=== PATIENT | male | born 1960 | race Caucasian/White ===

== ENCOUNTER 2017-04-02 13:34 | Inpatient (IN) | payer MEDICARE ==
[~2017-04-02] VITALS: Ht 167.6 cm; Wt 90.0 kg
[~2017-04-02 13:34] MED LIST: ASCO500C PO; BETH50TA2 PO; COLA100C3 PO; CYMB60CA PO; DIAZ5 PO; GABA300C5 PO; LEVO.05 PO; NADO20TA PO; OXYC30TA62 PO; PERC10TA27 PO; PROC2.5C RECTAL; PROT40TA PO; TAMS5CAP PO; TIZA6CAP3 PO; ZYRT10CA PO
[2017-04-02 13:39] VITALS: BP 88/57; PULSE 80; RESP 20; TEMP 98.7; O2SAT 95
--- NOTE | 2017-04-02 13:41 | PD ---
Physical Exam Time Seen by Provider: 13:39 Narrative 56 y/o male sent here by Dr. Salazar for evaluation of extensive cellulitis not responding to outpatient therapy. He has been taking a leftover prescription of azithromyin in an effort to self-treat. Denies fevers but he ahs had "sweats." Vital signs reviewed. Seen at triage desk. Awaiting bed placement. Data Data Last Documented VS Vital Signs Date Time Temp Pulse Resp B/P Pulse Ox O2 Delivery O2 Flow Rate FiO2 04/02/17 13:39 98.7 80 20 88/57 95 MDM Medical Record Reviewed: Yes Supervised Visit with MARIA GUADALUPE: No James Delcid Apr 02, 2017 13:41
[2017-04-02 13:42] VITALS: BP 97/57; PULSE 80
[2017-04-02 15:57] VITALS: BP 95/62; PULSE 82; RESP 16; TEMP 97.4; O2SAT 96
[2017-04-02 16:00] VITALS: BP 100/66; PULSE 82; RESP 16
[2017-04-02] MEDS ORDERED: SODIUM CHLOR 0.9% 1000 ML INJ 1,000 ML IV ONE (17:00)
[2017-04-02] MEDS ORDERED: VANCOMYCIN INJ 1,000 MG in SODIUM CHLOR 0.9% 250 ML INJ 250 ML IV ONE (17:00)
[2017-04-02 17:31] LABS: AUTOMATED NEUTROPHIL # 3.8 TH/MM3 (1.8-7.7); BASOPHIL % 0.5 % (0.0-2.0); EOSINOPHIL # 0.1 TH/MM3 (0-0.4); EOSINOPHIL % 1.1 % (0.0-4.0); HEMATOCRIT 39.8 % (39.0-51.0); HEMO FLAGS DIFF FINAL; LYMPH % 38.7 % (9.0-44.0); LYMPHOCYTE # 2.9 TH/MM3 (1.0-4.8); MEAN CELL VOLUME 86.4 FL (80.0-100.0); MEAN CORPUSCULAR HEMOGLOBIN 29.8 PG (27.0-34.0); MEAN CORPUSCULAR HGB CONC 34.5 % (32.0-36.0); MONO % 9.9 % (0.0-8.0); NEUT % 49.8 % (16.0-70.0); PLATELET COUNT 181 TH/MM3 (150-450); RED BLOOD COUNT 4.61 MIL/MM3 (4.50-5.90); RED CELL DISTRIBUTION WIDTH 12.9 % (11.6-17.2); WHITE BLOOD COUNT 7.6 TH/MM3 (4.0-11.0)
[2017-04-02 17:46] LABS: ALT (GPT) 48 U/L (12-78)
[2017-04-02 17:48] LABS: ALKALINE PHOSPHATASE 89 U/L (45-117); TOTAL BILIRUBIN ADULT 0.7 MG/DL (0.2-1.0)
[2017-04-02 18:14] LABS: ANION GAP 6 MEQ/L (5-15); AST (GOT) 34 U/L (15-37); BICARBONATE 30.9 MEQ/L (21.0-32.0); BLOOD UREA NITROGEN 8 MG/DL (7-18); CHLORIDE 100 MEQ/L (98-107); GLOMERULAR FILTRATION RATE 79 ML/MIN (>89); POTASSIUM 3.9 MEQ/L (3.5-5.1); SODIUM (NA) 137 MEQ/L (136-145)
--- NOTE | 2017-04-02 18:44 | PD ---
HPI Chief Complaint: Skin Problem Time Seen by Provider: 16:18 Travel History International Travel<30 days: No Contact w/Intl Traveler<30days: No Traveled to known affect area: No History of Present Illness HPI PATIENT WAS SENT OVER BY PCP FOR IV ABX FOR CELLULITIS WITH OUTPT MED FAILURE....PATIENT IS DIFFICULT TO CARE FOR DUE TO MULTIPLE ALLERGIES (CIPRO, EES, PCN, SULFA) PFSH Past Medical History Blood Disorders: No Cancer: No Cardiovascular Problems: No Chemotherapy: No Diabetes: No Endocrine: No GERD: Yes Genitourinary: No Hepatitis: No Hiatal Hernia: No Immune Disorder: No Musculoskeletal: Yes (PT IS A QUADRIPLEGIC FOR TWO YEARS.) Neurologic: Yes Psychiatric: No Reproductive: No Respiratory: No Radiation Therapy: No Thyroid Disease: No Past Surgical History Abdominal Surgery: Yes (HAITAL HERNIA, CHOLECYSTECTOMY, ) AICD: No Arteriovenous Shunt: No Body Medical Devices: CERVICAL PLATE AND SCREWS POST ACCEDENT SX. Cardiac Surgery: No Cholecystectomy: Yes (10/08/06) Ear Surgery: No Endocrine Surgery: No Eye Surgery: No Genitourinary Surgery: Yes (ADRENAAL GLAND REMOVED) Gynecologic Surgery: No Insulin Pump: No Joint Replacement: No Oral Surgery: No Pacemaker: No Thoracic Surgery: No Other Surgery: Yes (&A 1972) Social History Alcohol Use: No Tobacco Use: Yes (1PPD) Substance Use: No Allergies-Medications (Allergen,Severity, Reaction): Coded Allergies: Baclofen (Verified Allergy, Severe, respiratory difficulty, 04/02/17) Cipro (Verified Allergy, Severe, respiratory difficulty, 04/02/17) Erythromycin (Verified Allergy, Severe, respiratory difficulty, 04/02/17) Penicillin (Verified Allergy, Severe, THROAT CLOSE, 04/02/17) Sulfa (Verified Allergy, Severe, respiratory difficulty, 04/02/17) Reported Meds & Prescriptions Reported Meds & Active Scripts Active Flomax (Tamsulosin HCl) 0.4 Mg Cap 0.4 Mg PO BID Nadolol 20 Mg Tab 20 Mg PO DAILY Proctosol Hc 2.5% (Hydrocortisone Rectal 2.5%) 2.5% Cream 1 Applic RECTAL BID PRN Bethanechol 50 Mg Tab 50 Mg PO QID Reported Vitamin C (Ascorbic Acid) 500 Mg Cap 500 Mg PO DAILY Tizanidine (Tizanidine HCl) 6 Mg Cap 6 Mg PO DIRECTED (2) tabs hs and (1) tab bid Synthroid (Levothyroxine Sodium) 50 Mcg Tab 50 Mcg PO DAILY Protonix (Pantoprazole Sodium) 40 Mg Tab 40 Mg PO DAILY Percocet (Oxycodone-Acetaminophen) 10-325 mg Tab 1 Tab PO DIRECTED PRN Oxycontin (Oxycodone HCl) 30 Mg Tab 30 Mg PO BID Gabapentin 300 Mg Cap 300 Mg PO HS Colace (Docusate Sodium) 100 Mg Cap 100 Mg PO DAILY Valium (Diazepam) 5 Mg Tab 5 Mg PO QID PRN Cymbalta DR (Duloxetine HCl) 60 Mg Capdr 60 Mg PO DAILY Zyrtec Allergy (Cetirizine HCl) 10 Mg Cap 10 Mg PO DIRECTED Review of Systems Except as stated in HPI: all other systems reviewed are Neg Physical Exam Narrative GENERAL: SKIN: Warm and dry. ERYTHEMA/WARM OVER LEFT BUTTOCK AND LATERAL THIGH HEAD: Atraumatic. Normocephalic. EYES: Pupils equal and round. No scleral icterus. No injection or drainage. ENT: No nasal bleeding or discharge. Mucous membranes pink and moist. NECK: Trachea midline. No JVD. CARDIOVASCULAR: Regular rate and rhythm. RESPIRATORY: No accessory muscle use. Clear to auscultation. Breath sounds equal bilaterally. GASTROINTESTINAL: Abdomen soft, non-tender, nondistended. Hepatic and splenic margins not palpable. MUSCULOSKELETAL: Extremities without clubbing, cyanosis, or edema. No obvious deformities. HOWEVER PATIENT IS QUADRUPLEGIC NEUROLOGICAL: Awake and alert. Normal speech. PSYCHIATRIC: Appropriate mood and affect; insight and judgment normal. Data Data Last Documented VS Vital Signs Date Time Temp Pulse Resp B/P Pulse Ox O2 Delivery O2 Flow Rate FiO2 04/02/17 16:00 82 16 100/66 04/02/17 15:57 97.4 96 Orders Complete Blood Count With Diff (04/02/17 16:48) Comprehensive Metabolic Panel (04/02/17 16:48) Blood Culture (04/02/17 16:48) Iv Access Insert/Monitor (04/02/17 16:48) Lactic Acid Sepsis Protocol (04/02/17 16:48) Vancomycin Inj (Vancomycin Inj) (04/02/17 17:00) Sodium Chlor 0.9% 1000 Ml Inj (Ns 1000 M (04/02/17 17:00) Admit Order (Ed Use Only) (04/02/17 19:01) Place In Observation (04/02/17 ) Vital Signs (Adult) Q4H (04/02/17 18:59) Activity Oob With Assistance (04/02/17 18:59) Diet Heart Healthy (04/02/17 Dinner) Sodium Chloride 0.9% Flush (Ns Flush) (04/02/17 19:00) Sodium Chloride 0.9% Flush (Ns Flush) (04/02/17 21:00) Acetaminophen (Tylenol) (04/02/17 19:00) Ondansetron Inj (Zofran Inj) (04/02/17 19:00) Temazepam (Restoril) (04/02/17 19:00) Basic Metabolic Panel (Bmp) (04/03/17 06:00) Complete Blood Count With Diff (04/03/17 06:00) Chest, Single Ap (04/02/17 18:59) Electrocardiogram (04/02/17 18:59) Pt Request For Service (04/02/17 18:59) Enoxaparin Inj (Lovenox Inj) (04/02/17 21:00) Naloxone Inj (Narcan Inj) (04/02/17 19:00) Magnesium Hydroxide Liq (Milk Of Magnesi (04/02/17 19:00) Labs Laboratory Tests Test 04/02/17 04/02/17 16:50 16:55 Lactic Acid Level 1.8 mmol/L White Blood Count 7.6 TH/MM3 Red Blood Count 4.61 MIL/MM3 Hemoglobin 13.7 GM/DL Hematocrit 39.8 % Mean Corpuscular Volume 86.4 FL Mean Corpuscular Hemoglobin 29.8 PG Mean Corpuscular Hemoglobin 34.5 % Concent Red Cell Distribution Width 12.9 % Platelet Count 181 TH/MM3 Mean Platelet Volume 7.8 FL Neutrophils (%) (Auto) 49.8 % Lymphocytes (%) (Auto) 38.7 % Monocytes (%) (Auto) 9.9 % Eosinophils (%) (Auto) 1.1 % Basophils (%) (Auto) 0.5 % Neutrophils # (Auto) 3.8 TH/MM3 Lymphocytes # (Auto) 2.9 TH/MM3 Monocytes # (Auto) 0.8 TH/MM3 Eosinophils # (Auto) 0.1 TH/MM3 Basophils # (Auto) 0.0 TH/MM3 CBC Comment DIFF FINAL Differential Comment Sodium Level 137 MEQ/L Potassium Level 3.9 MEQ/L Chloride Level 100 MEQ/L Carbon Dioxide Level 30.9 MEQ/L Anion Gap 6 MEQ/L Blood Urea Nitrogen 8 MG/DL Creatinine 0.97 MG/DL Estimat Glomerular Filtration 79 ML/MIN Rate Random Glucose 90 MG/DL Calcium Level 9.0 MG/DL Total Bilirubin 0.7 MG/DL Aspartate Amino Transf 34 U/L (AST/SGOT) Alanine Aminotransferase 48 U/L (ALT/SGPT) Alkaline Phosphatase 89 U/L Total Protein 7.8 GM/DL Albumin 3.6 GM/DL MDM Medical Decision Making Medical Screen Exam Complete: Yes Emergency Medical Condition: Yes Differential Diagnosis CELLULITIS WITH FAILED OUTPATIENT ABX WITH ZPAK AND DOXY Narrative Course SEE ABOVE Diagnosis Primary Impression: CELLULITIS WITHOUT ABSCESS (FAILED OUTPATIENT THERAPY) Admitting Information Admitting Physician Requests: Observation Eleazar White MD Apr 02, 2017 18:44
[2017-04-02] MEDS ORDERED: NALOXONE HCL 0.4 MG/ML AMP IV PRN (19:00)
[2017-04-02] MEDS ORDERED: MAGNESIUM HYDROXIDE SUSP 30 ML CUP PO PRN (19:00)
[2017-04-02] MEDS ORDERED: TEMAZEPAM 15 MG CAP PO PRN (19:00)
[2017-04-02] MEDS ORDERED: SODIUM CHLORIDE 0.9% FLUSH 10 ML FLUSH IV FLUSH PRN (19:00)
[2017-04-02] MEDS ORDERED: ACETAMINOPHEN 325 MG TAB PO PRN (19:00)
[2017-04-02] MEDS: NS + KCL 20 MEQ INJ 1,000 ML IV SCH (19:15)
[2017-04-02] MEDS ORDERED: DIAZEPAM 5 MG TAB PO PRN (19:15)
--- NOTE | 2017-04-02 19:27 | RADRPT ---
EXAM DATE/TIME: 04/02/2017 19:14 [facility] COMPARISON: No previous studies available for comparison. INDICATIONS : Cough. MEDICAL HISTORY : Paraplegic. Cellulitis. SURGICAL HISTORY : None. ENCOUNTER: Initial ACUITY: 1 day PAIN SCORE: 0/10 LOCATION: Bilateral chest FINDINGS: A single view of the chest demonstrates the lungs to be symmetrically aerated without evidence of mas s, infiltrate or effusion. The cardiomediastinal contours are unremarkable. Osseous structures are intact. CONCLUSION: No evidence of acute cardiopulmonary disease. Morales Ruff MD on April 02, 2017 at 19:25 Board Certified Radiologist. This report was verified electronically.
[2017-04-02] MEDS ORDERED: Vancomycin Consult Pharmacy 1 EA OTHER SCH (19:30)
[2017-04-02] MEDS ORDERED: POLY17PO3 PO (19:32)
[2017-04-02] MEDS ORDERED: PRAV10TA PO (19:32)
[2017-04-02] MEDS ORDERED: PRAV40TA2 PO (19:32)
[2017-04-02] MEDS ORDERED: DOCU100C PO (19:33)
[2017-04-02] MEDS ORDERED: GABA400C5 PO (19:34)
[2017-04-02] MEDS: SODIUM CHLORIDE 0.9% FLUSH 10 ML FLUSH IV FLUSH SCH (20:54)
[2017-04-02] MEDS: oxyCODONE HCL 10 MG CONTROLLED RELEASE TAB PO SCH (21:00)
[2017-04-02] MEDS: ENOXAPARIN SODIUM 30 MG/0.3 ML SYRINGE SQ SCH (21:00)
[2017-04-02] MEDS: GABAPENTIN 300 MG CAP PO SCH (21:00)
[2017-04-02] MEDS: TAMSULOSIN HCL 0.4 MG CAP PO SCH (21:00)
[2017-04-02] MEDS: BETHANECHOL CHL 25 MG TAB PO SCH (21:00)
[2017-04-02 21:27] VITALS: BP 134/50; PULSE 79; RESP 16; O2SAT 96
[2017-04-03] VITALS (8 sets, daily range): BP systolic 114–142; BP diastolic 63–76; PULSE 54–85; RESP 16–20; TEMP 96.2–98.4; O2SAT 94–96
[2017-04-03 04:16] LABS: AUTOMATED NEUTROPHIL # 2.3 TH/MM3 (1.8-7.7); BASOPHIL % 0.6 % (0.0-2.0); EOSINOPHIL # 0.1 TH/MM3 (0-0.4); EOSINOPHIL % 1.9 % (0.0-4.0); HEMATOCRIT 37.2 % (39.0-51.0); HEMO FLAGS DIFF FINAL; LYMPHOCYTE # 2.2 TH/MM3 (1.0-4.8); MEAN CELL VOLUME 86.4 FL (80.0-100.0); MEAN CORPUSCULAR HGB CONC 34.8 % (32.0-36.0); MONO % 9.9 % (0.0-8.0); NEUT % 45.6 % (16.0-70.0); PLATELET COUNT 164 TH/MM3 (150-450); RED BLOOD COUNT 4.31 MIL/MM3 (4.50-5.90); RED CELL DISTRIBUTION WIDTH 13.1 % (11.6-17.2); WHITE BLOOD COUNT 5.1 TH/MM3 (4.0-11.0)
[2017-04-03] MEDS ORDERED: VANCOMYCIN 1,000 MG/NS 250 ML IV SCH ×2 (05:00)
[2017-04-03] MEDS ORDERED: VANCOMYCIN INJ 1,000 MG in SODIUM CHLOR 0.9% 250 ML INJ 250 ML IV SCH (05:30)
[2017-04-03] MEDS: NS + KCL 20 MEQ INJ 1,000 ML IV SCH ×2 (05:36→15:22)
[2017-04-03] MEDS: PANTOPRAZOLE SOD 40 MG DELAYED RELEASE TAB PO SCH (05:37)
[2017-04-03] MEDS: LEVOTHYROXINE SODIUM 50 MCG TAB PO SCH (05:37)
[2017-04-03] MEDS: SODIUM CHLORIDE 0.9% FLUSH 10 ML FLUSH IV FLUSH SCH ×2 (09:00→20:11)
--- NOTE | 2017-04-03 09:11 | HHI.HP ---
HPI Service [facility] Primary Care Physician Dr. Giuseppe Branch Admission Diagnosis CELLULITIS FAILED OUTPATIENT THERAPY Chief Complaint: Cellulitis left buttock and lateral thigh Travel History International Travel<30 Days: No Contact w/Intl Traveler <30 Da: No Traveled to Known Affected Are: No History of Present Illness Mr. 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 He presented to the ED at [facility] on 04/02/17 for cellulitis of the left buttock and lateral thigh. This reportedly started about 4 days ago with an 8c, size area of erythema over the left buttock and upper thigh area and was febrile and overall feeling unwell. Pt had Azithromycin at home from a previous prescription which he started taking without any improvement. Pt was seen by his PCP, Dr. Branch, on 04/02/17 who referred him to the ED for admission and IV antibiotics as the pt appeared toxic in his office yesterday. Review of Systems Constitutional: DENIES: Fever, Chills Cardiovascular: DENIES: Chest pain, Lower Extremity Edema Gastrointestinal: DENIES: Abdominal pain Integumentary: COMPLAINS OF: Abnormal pigmentation Past Family Social History Past Medical History Quadriplegia, C5-C7 injury after industrial accident in 2010 and is wheelchair bound Chronic pain Neurogenic bladder KAVON Prediabetes Hypothyroidism Fatty liver/Hepatomegaly GERD Hx of BCC on face Hx of adrenal cortical adenoma Asthma Allergic rhinitis Past Surgical History Adrenalectomy Cervical vertebral fusion Cholecystectomy Rotator cuff repair Umbilical hernia repair Tonsillectomy/Adenoidectomy Reported Medications -Flomax 0.4 Mg PO BID -Pravastatin 10 Mg PO DAILY -Vitamin C 500 Mg PO DAILY -Synthroid 50 Mcg PO DAILY -Protonix 40 Mg PO DAILY -Oxycontin 30 Mg PO BID -Valium 5 Mg PO QID PRN -Cymbalta DR 60 Mg PO DAILY -Zyrtec Allergy 10 Mg PO DAILY PRN -Percocet 10-325 mg Tab 1 Tab PO BID PRN -Bethanechol 50 Mg PO QID -Gabapentin 400 Cap PO TID -Tizanidine 4Mg PO QID (1tab @0800, 1tab @1400, 2 tabs HS) -Proctosol Hc 2.5% (Hydrocortisone Rectal 2.5%) 2.5% Cream 1 Applic RECTAL BID PRN -Docusate Sodium 200 Mg PO BID -Miralax 17 Gm PO DAILY Allergies: Coded Allergies: Baclofen (Verified Allergy, Severe, respiratory difficulty, 04/02/17) Cipro (Verified Allergy, Severe, respiratory difficulty, 04/02/17) Erythromycin (Verified Allergy, Severe, respiratory difficulty, 04/02/17) Penicillin (Verified Allergy, Severe, THROAT CLOSE, 04/02/17) Sulfa (Verified Allergy, Severe, respiratory difficulty, 04/02/17) Family History Noncontributory Social History Hx of tobacco use Denies any alcohol or illicit drug use Physical Exam Vital Signs Vital Signs Date Time Temp Pulse Resp B/P Pulse Ox O2 Delivery O2 Flow Rate FiO2 04/03/17 07:39 97.4 85 18 117/76 94 04/03/17 04:36 98.4 85 16 137/70 94 04/03/17 00:00 98.4 66 16 114/67 94 04/02/17 21:27 79 16 134/50 96 04/02/17 16:00 82 16 100/66 04/02/17 15:57 97.4 82 16 95/62 96 04/02/17 13:42 80 97/57 04/02/17 13:39 98.7 80 20 88/57 95 Physical Exam GENERAL: This is a well-nourished, well-developed patient, in no apparent distress. HEENT: Atraumatic. Normocephalic. No temporal or scalp tenderness. No scleral icterus. Airway patent. NECK: Trachea midline, supple, nontender. CARDIO: Regular. RESP: CTA bilaterally. No wheezes, rales, or rhonchi. ABD: +BS, soft, non-tender, nondistended. EXT: Significant erythema and induration of the left buttock, flank and upper lateral left thigh NEURO: Awake and alert. Motor and sensory grossly within normal limits. Normal speech. Laboratory Laboratory Tests Test 04/02/17 04/02/17 04/03/17 16:50 16:55 03:59 Lactic Acid Level 1.8 White Blood Count 7.6 5.1 Red Blood Count 4.61 4.31 Hemoglobin 13.7 12.9 Hematocrit 39.8 37.2 Mean Corpuscular Volume 86.4 86.4 Mean Corpuscular Hemoglobin 29.8 30.0 Mean Corpuscular Hemoglobin 34.5 34.8 Concent Red Cell Distribution Width 12.9 13.1 Platelet Count 181 164 Mean Platelet Volume 7.8 7.5 Neutrophils (%) (Auto) 49.8 45.6 Lymphocytes (%) (Auto) 38.7 42.0 Monocytes (%) (Auto) 9.9 9.9 Eosinophils (%) (Auto) 1.1 1.9 Basophils (%) (Auto) 0.5 0.6 Neutrophils # (Auto) 3.8 2.3 Lymphocytes # (Auto) 2.9 2.2 Monocytes # (Auto) 0.8 0.5 Eosinophils # (Auto) 0.1 0.1 Basophils # (Auto) 0.0 0.0 CBC Comment DIFF FINAL DIFF FINAL Differential Comment Sodium Level 137 142 Potassium Level 3.9 4.0 Chloride Level 100 107 Carbon Dioxide Level 30.9 30.0 Anion Gap 6 5 Blood Urea Nitrogen 8 7 Creatinine 0.97 0.75 Estimat Glomerular Filtration 79 107 Rate Random Glucose 90 107 Calcium Level 9.0 8.6 Total Bilirubin 0.7 Aspartate Amino Transf 34 (AST/SGOT) Alanine Aminotransferase 48 (ALT/SGPT) Alkaline Phosphatase 89 Total Protein 7.8 Albumin 3.6 Date/Time Procedure Status Source Growth 04/02/17 16:58 Aerobic Blood Culture Received Blood Peripheral Pending 04/02/17 16:58 Anaerobic Blood Culture Received Blood Peripheral Pending Result Diagram: 04/03/17 0359 04/03/17 0359 Imaging Last Impressions Chest X-Ray 04/02/17 1859 Signed Impressions: Service Date/Time: Sunday, April 02, 2017 19:14 - CONCLUSION: No evidence of acute cardiopulmonary disease. Morales Ruff MD Septic Shock Reassessment Heart: Regular rate and rhythm Lungs: Clear Skin: Warm Assessment and Plan Problem List: (1) Cellulitis Status: Chronic Plan: - Pt developed left buttock, flank and upper lateral thigh cellulitis that began about 4-5 days ago. - Pt had some Azithromycin at home which was started about 3 days ago but without improvement and pt with significant erythema and induration of the left flank/buttock/ upper thigh. - Pt was seen by his PCP yesterday and was referred to the ED for further evaluation. - Pt was started on Iv Vancomycin in the ED and this was continued with pharmacy dosing. 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 home meds Assessment and Plan Patient examined. Assessment and plan formulated with Ro Kyle PA-C. I agree with the above. Pt debilitated. quadriplegic. Pt with large area of cellulitis involving left flank, left buttock, left upper/ posterior thigh. Will obtain CT of abd/pelvis, attn to soft tissue, to r/o associated abscess. Ro Kyle Apr 03, 2017 09:11 Giuseppe Sherman DO Apr 04, 2017 22:13
[2017-04-03] MEDS: TAMSULOSIN HCL 0.4 MG CAP PO SCH ×2 (09:41→18:00)
[2017-04-03] MEDS: NADOLOL 20 MG TAB PO SCH (09:41)
[2017-04-03] MEDS: DOCUSATE SODIUM 100 MG CAP PO SCH (09:41)
[2017-04-03] MEDS: DULoxetine HCl DR 60 MG CAP PO SCH (09:41)
[2017-04-03] MEDS: BETHANECHOL CHL 25 MG TAB PO SCH ×4 (09:42→20:55)
[2017-04-03] MEDS: oxyCODONE HCL 10 MG CONTROLLED RELEASE TAB PO SCH ×2 (09:44→20:54)
[2017-04-03] MEDS: VANCOMYCIN INJ 1,500 MG in SODIUM CHLORID 0.9% 500 ML INJ 500 ML IV SCH (13:55)
[2017-04-03] MEDS ORDERED: HYDROCORTISONE 2.5% CR (ANUSOL HC) 30 GM TUBE RECTAL PRN (14:15)
[2017-04-03] MEDS: ONDANSETRON HCL 4 MG/2 ML VIAL IVP PRN (15:19)
[2017-04-03] MEDS: NYSTATIN 100,000 U/GM PWD 15 GM BTL TOPICAL SCH ×2 (15:20→20:54)
[2017-04-03] MEDS ORDERED: IOHEXOL 350 MG/ML 10 ML VIAL (for RAD DIAG) IV ONE (15:43)
[2017-04-03] MEDS ORDERED: METOCLOPRAMIDE HCL 10 MG/2 ML VIAL IM PRN (16:15)
--- NOTE | 2017-04-03 16:31 | RADRPT ---
EXAM DATE/TIME: 04/03/2017 15:05 [facility] COMPARISON: No previous studies available for comparison. INDICATIONS : Evaluate for abscess. IV CONTRAST: 82 cc Omnipaque 350 (iohexol) IV ORAL CONTRAST: Prescribed oral contrast ingested. RADIATION DOSE: 9.96 CTDIvol (mGy) MEDICAL HISTORY : Hypertension. Gastroesophageal reflux disease. Quadriplegia, rectal bleed. SURGICAL HISTORY : Cholecystectomy. Fusion, cervical. ENCOUNTER: Initial ACUITY: 1 week PAIN SCALE: 4/10 LOCATION: Bilateral upper quadrant TECHNIQUE: Volumetric scanning of the abdomen and pelvis was performed. Using automated exposure control and ad justment of the mA and/or kV according to patient size, radiation dose was kept as low as reasonably achievable to obtain optimal diagnostic quality images. FINDINGS: The visualized portion lung bases demonstrates mild interstitial fibrotic change and old, calcified g ranulomatous nodes in the right vladimir and the subcarinal vamsi chain. The appearance of the liver, spleen, pancreas, adrenal glands and kidneys is within normal limits. Note is made of an IVC filter. There are some scattered para-aortic nodes. The largest measures 1.1 c m. These are nonspecific in appearance by CT. The visualized loops of small and large bowel in the upper abdomen are unremarkable. There is no free fluid within the pelvis. There is a moderate amount of stool within the distal sigmo id colon and rectum. No free fluid is seen. No free air is present. No iliac or inguinal adenopathy i s identified. The visualized bony structures demonstrate degenerative changes but are otherwise intact. CONCLUSION: 1. There are some small para-aortic nodes in the retroperitoneum. 2. Incidental note is made of an IVC filter. 3. Exam is otherwise unremarkable. 4. No abscess identified. Jacky Camacho MD on April 03, 2017 at 16:24 Board Certified Radiologist. This report was verified electronically.
[2017-04-03] MEDS: GABAPENTIN 400 MG CAP PO SCH (17:53)
[2017-04-03] MEDS: oxyCODONE/ACETAMINOPHEN 10 MG/325 MG TAB PO PRN (17:54)
[2017-04-03] MEDS: ENOXAPARIN SODIUM 30 MG/0.3 ML SYRINGE SQ SCH (20:55)
[2017-04-03] MEDS: GABAPENTIN 300 MG CAP PO SCH (20:55)
[2017-04-04] VITALS: BP_SYST 101; BP_SYST 98; BP_DIAS 56; BP_DIAS 57; PULSE 60; PULSE 75; RESP 16; RESP 18; TEMP 96.2; TEMP 97.8; O2SAT 95
[2017-04-04] MEDS: NS + KCL 20 MEQ INJ 1,000 ML IV SCH ×2 (01:15→09:30)
[2017-04-04] MEDS: VANCOMYCIN INJ 1,500 MG in SODIUM CHLORID 0.9% 500 ML INJ 500 ML IV SCH ×2 (02:06→13:33)
[2017-04-04] MEDS: PANTOPRAZOLE SOD 40 MG DELAYED RELEASE TAB PO SCH (05:13)
[2017-04-04] MEDS: NYSTATIN 100,000 U/GM PWD 15 GM BTL TOPICAL SCH ×3 (05:13→20:54)
[2017-04-04] MEDS: LEVOTHYROXINE SODIUM 50 MCG TAB PO SCH (05:13)
[2017-04-04 06:29] VITALS: BP 108/53; PULSE 68; RESP 18; TEMP 96.1; O2SAT 93
[2017-04-04 08:00] VITALS: BP 113/63; PULSE 70; RESP 16; TEMP 96.6; O2SAT 97
[2017-04-04 08:30] LABS: AUTOMATED NEUTROPHIL # 2.1 TH/MM3 (1.8-7.7); BASOPHIL % 0.9 % (0.0-2.0); EOSINOPHIL # 0.1 TH/MM3 (0-0.4); EOSINOPHIL % 2.2 % (0.0-4.0); HEMATOCRIT 36.5 % (39.0-51.0); HEMO FLAGS DIFF FINAL; LYMPH % 45.8 % (9.0-44.0); LYMPHOCYTE # 2.3 TH/MM3 (1.0-4.8); MEAN CELL VOLUME 87.2 FL (80.0-100.0); MEAN CORPUSCULAR HEMOGLOBIN 29.5 PG (27.0-34.0); MEAN CORPUSCULAR HGB CONC 33.8 % (32.0-36.0); MONO % 9.8 % (0.0-8.0); NEUT % 41.3 % (16.0-70.0); PLATELET COUNT 162 TH/MM3 (150-450); RED BLOOD COUNT 4.18 MIL/MM3 (4.50-5.90); WHITE BLOOD COUNT 5.1 TH/MM3 (4.0-11.0)
[2017-04-04 08:38] LABS: BICARBONATE 29.4 MEQ/L (21.0-32.0); MAGNESIUM 2.2 MG/DL (1.5-2.5); POTASSIUM 4.1 MEQ/L (3.5-5.1)
[2017-04-04] MEDS: SODIUM CHLORIDE 0.9% FLUSH 10 ML FLUSH IV FLUSH SCH ×2 (09:00→20:54)
[2017-04-04] MEDS: DOCUSATE SODIUM 100 MG CAP PO SCH (09:29)
[2017-04-04] MEDS: BETHANECHOL CHL 25 MG TAB PO SCH ×4 (09:29→21:04)
[2017-04-04] MEDS: TAMSULOSIN HCL 0.4 MG CAP PO SCH ×2 (09:29→18:19)
[2017-04-04] MEDS: GABAPENTIN 400 MG CAP PO SCH ×3 (09:29→18:19)
[2017-04-04] MEDS: NADOLOL 20 MG TAB PO SCH (09:29)
[2017-04-04] MEDS: DULoxetine HCl DR 60 MG CAP PO SCH (09:29)
[2017-04-04] MEDS: oxyCODONE HCL 10 MG CONTROLLED RELEASE TAB PO SCH ×2 (09:30→21:01)
--- NOTE | 2017-04-04 12:04 | HHI.PR ---
Subjective Remarks Pt reports a lot of pain in the left flank and back when trying to sit up in bed. He has been afebrile. Objective Vitals Vital Signs Date Time Temp Pulse Resp B/P Pulse Ox O2 Delivery O2 Flow Rate FiO2 04/04/17 06:29 96.1 68 18 108/53 93 04/04/17 00:00 96.2 60 16 98/57 95 04/03/17 20:00 97.1 77 18 142/71 94 04/03/17 19:27 20 04/03/17 17:42 96.2 74 20 135/63 96 04/03/17 15:33 98.1 81 18 128/74 94 04/03/17 04/03/17 04/04/17 15:00 23:00 07:00 Intake Total 240 ml 1259 ml Output Total 1200 ml 300 ml Balance -960 ml -300 ml 1259 ml Intake Oral 240 ml IV Total 1259 ml Output Urine Total 1200 ml 300 ml # Voids 1 # Bowel Movements 1 0 Result Diagram: 04/04/17 0746 04/04/17 0746 Other Results Laboratory Tests Test 04/02/17 04/02/17 04/03/17 04/04/17 16:50 16:55 03:59 07:46 Lactic Acid Level 1.8 mmol/L White Blood Count 7.6 TH/MM3 5.1 TH/MM3 5.1 TH/MM3 Red Blood Count 4.61 MIL/MM3 4.31 MIL/MM3 4.18 MIL/MM3 Hemoglobin 13.7 GM/DL 12.9 GM/DL 12.4 GM/DL Hematocrit 39.8 % 37.2 % 36.5 % Mean Corpuscular Volume 86.4 FL 86.4 FL 87.2 FL Mean Corpuscular Hemoglobin 29.8 PG 30.0 PG 29.5 PG Mean Corpuscular Hemoglobin 34.5 % 34.8 % 33.8 % Concent Red Cell Distribution Width 12.9 % 13.1 % 13.0 % Platelet Count 181 TH/MM3 164 TH/MM3 162 TH/MM3 Mean Platelet Volume 7.8 FL 7.5 FL 7.4 FL Neutrophils (%) (Auto) 49.8 % 45.6 % 41.3 % Lymphocytes (%) (Auto) 38.7 % 42.0 % 45.8 % Monocytes (%) (Auto) 9.9 % 9.9 % 9.8 % Eosinophils (%) (Auto) 1.1 % 1.9 % 2.2 % Basophils (%) (Auto) 0.5 % 0.6 % 0.9 % Neutrophils # (Auto) 3.8 TH/MM3 2.3 TH/MM3 2.1 TH/MM3 Lymphocytes # (Auto) 2.9 TH/MM3 2.2 TH/MM3 2.3 TH/MM3 Monocytes # (Auto) 0.8 TH/MM3 0.5 TH/MM3 0.5 TH/MM3 Eosinophils # (Auto) 0.1 TH/MM3 0.1 TH/MM3 0.1 TH/MM3 Basophils # (Auto) 0.0 TH/MM3 0.0 TH/MM3 0.0 TH/MM3 CBC Comment DIFF FINAL DIFF FINAL DIFF FINAL Differential Comment Sodium Level 137 MEQ/L 142 MEQ/L 143 MEQ/L Potassium Level 3.9 MEQ/L 4.0 MEQ/L 4.1 MEQ/L Chloride Level 100 MEQ/L 107 MEQ/L 108 MEQ/L Carbon Dioxide Level 30.9 MEQ/L 30.0 MEQ/L 29.4 MEQ/L Anion Gap 6 MEQ/L 5 MEQ/L 6 MEQ/L Blood Urea Nitrogen 8 MG/DL 7 MG/DL 7 MG/DL Creatinine 0.97 MG/DL 0.75 MG/DL 0.83 MG/DL Estimat Glomerular Filtration 79 ML/MIN 107 ML/MIN 95 ML/MIN Rate Random Glucose 90 MG/DL 107 MG/DL 104 MG/DL Calcium Level 9.0 MG/DL 8.6 MG/DL 8.9 MG/DL Total Bilirubin 0.7 MG/DL Aspartate Amino Transf 34 U/L (AST/SGOT) Alanine Aminotransferase 48 U/L (ALT/SGPT) Alkaline Phosphatase 89 U/L Total Protein 7.8 GM/DL Albumin 3.6 GM/DL Magnesium Level 2.2 MG/DL Imaging Last Impressions Abdomen/Pelvis CT 04/03/17 0000 Signed Impressions: Service Date/Time: Monday, April 03, 2017 15:05 - CONCLUSION: 1. There are some small para-aortic nodes in the retroperitoneum. 2. Incidental note is made of an IVC filter. 3. Exam is otherwise unremarkable. 4. No abscess identified. Jacky Camacho MD Chest X-Ray 04/02/17 2029 Signed Impressions: Service Date/Time: Sunday, April 02, 2017 19:14 - CONCLUSION: No evidence of acute cardiopulmonary disease. Morales Ruff MD Objective Remarks GENERAL: NAD, AAOx3 CARDIO: Regular. RESP: CTA ABD: +BS, soft, non-tender, nondistended. EXT: Erythema slightly less than yesterday, continued induration of the left buttock, flank and upper lateral left thigh A/P Problem List: (1) Cellulitis Status: Chronic Plan: - Pt developed left buttock, flank and upper lateral thigh cellulitis that began about 4-5 days ago. - Pt had some Azithromycin at home which was started about 3 days ago but without improvement and pt with significant erythema and induration of the left flank/buttock/ upper thigh. - Pt was seen by his PCP yesterday and was referred to the ED for further evaluation. - Pt was started on IV Vancomycin in the ED and this was continued with pharmacy dosing. - Blood cultures (04/02) with 1/4 growing gram positive cocci. - CT Abd/pelvis with IV contrast (04/03/17) --> There are some small para-aortic nodes in the retroperitoneum. Incidental note is made of an IVC filter. Exam is otherwise unremarkable. No abscess identified. - Stop IVF today - Diet as tolerated - Supportive care - Anticipate discharge in the next few days as long as clinical condition continues to improve. 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 home meds Assessment and Plan Patient examined. Assessment and plan formulated with Ro Kyle PA-C. I agree with the above. erythema at left flank, left buttock, and left upper/post thigh. Region with improvement from yesterday. Less erythema & less induration continue IV Vancomycin reassess 04/05 Ro Kyle Apr 04, 2017 12:04 Giuseppe Sherman DO Apr 04, 2017 22:15
[2017-04-04 12:45] VITALS: BP 102/54; PULSE 57; RESP 16; TEMP 96.3; O2SAT 96
[2017-04-04] MEDS ORDERED: PHARMACY ORDERED LAB ONE (13:45)
[2017-04-04 20:00] VITALS: BP 94/56; PULSE 64; RESP 20; TEMP 95.9; O2SAT 95
[2017-04-04] MEDS: ENOXAPARIN SODIUM 30 MG/0.3 ML SYRINGE SQ SCH (20:59)
[2017-04-04] MEDS: GABAPENTIN 300 MG CAP PO SCH (21:01)
[2017-04-05] MEDS: VANCOMYCIN INJ 1,500 MG in SODIUM CHLORID 0.9% 500 ML INJ 500 ML IV SCH ×2 (03:07→13:23)
[2017-04-05 04:00] VITALS: BP 129/65; PULSE 63; RESP 18; TEMP 97.5; O2SAT 95
[2017-04-05] MEDS: LEVOTHYROXINE SODIUM 50 MCG TAB PO SCH (05:16)
[2017-04-05] MEDS: PANTOPRAZOLE SOD 40 MG DELAYED RELEASE TAB PO SCH (05:16)
[2017-04-05] MEDS: NYSTATIN 100,000 U/GM PWD 15 GM BTL TOPICAL SCH ×3 (06:18→20:08)
[2017-04-05 08:00] VITALS: BP 145/65; PULSE 81; RESP 18; TEMP 97.5; O2SAT 96
[2017-04-05] MEDS: DULoxetine HCl DR 60 MG CAP PO SCH (08:31)
[2017-04-05] MEDS: NADOLOL 20 MG TAB PO SCH (08:32)
[2017-04-05] MEDS: GABAPENTIN 400 MG CAP PO SCH ×3 (08:32→17:29)
[2017-04-05] MEDS: DOCUSATE SODIUM 100 MG CAP PO SCH (08:32)
[2017-04-05] MEDS: TAMSULOSIN HCL 0.4 MG CAP PO SCH ×2 (08:34→17:32)
[2017-04-05] MEDS: BETHANECHOL CHL 25 MG TAB PO SCH ×4 (08:34→20:04)
[2017-04-05] MEDS: oxyCODONE HCL 10 MG CONTROLLED RELEASE TAB PO SCH ×2 (08:35→20:05)
[2017-04-05] MEDS: SODIUM CHLORIDE 0.9% FLUSH 10 ML FLUSH IV FLUSH SCH ×2 (08:38→20:08)
[2017-04-05] MEDS: oxyCODONE/ACETAMINOPHEN 10 MG/325 MG TAB PO PRN ×2 (12:07→17:31)
[2017-04-05 12:08] VITALS: BP 84/52; PULSE 67; RESP 18; TEMP 97.8; O2SAT 95
[2017-04-05 15:56] VITALS: BP 101/57; PULSE 65; RESP 18; TEMP 96.7; O2SAT 95
[2017-04-05 20:00] VITALS: BP 128/68; PULSE 67; RESP 20; TEMP 98.8; O2SAT 95
[2017-04-05] MEDS: GABAPENTIN 300 MG CAP PO SCH (20:04)
[2017-04-05] MEDS: ENOXAPARIN SODIUM 30 MG/0.3 ML SYRINGE SQ SCH (20:04)
[2017-04-06] VITALS: BP 150/68; PULSE 60; RESP 20; TEMP 98.8; O2SAT 95
[2017-04-06] MEDS: VANCOMYCIN INJ 1,500 MG in SODIUM CHLORID 0.9% 500 ML INJ 500 ML IV SCH ×2 (02:49→14:36)
[2017-04-06 04:00] VITALS: BP 115/61; PULSE 66; RESP 20; TEMP 95.3; O2SAT 94
[2017-04-06] MEDS: NYSTATIN 100,000 U/GM PWD 15 GM BTL TOPICAL SCH ×3 (05:56→20:30)
[2017-04-06] MEDS: LEVOTHYROXINE SODIUM 50 MCG TAB PO SCH (05:56)
[2017-04-06] MEDS: PANTOPRAZOLE SOD 40 MG DELAYED RELEASE TAB PO SCH (05:56)
[2017-04-06] MEDS: DOCUSATE SODIUM 100 MG CAP PO SCH (07:42)
[2017-04-06] MEDS: DULoxetine HCl DR 60 MG CAP PO SCH (07:42)
[2017-04-06] MEDS: BETHANECHOL CHL 25 MG TAB PO SCH ×4 (07:43→20:28)
[2017-04-06] MEDS: TAMSULOSIN HCL 0.4 MG CAP PO SCH ×2 (07:43→17:51)
[2017-04-06] MEDS: NADOLOL 20 MG TAB PO SCH (07:44)
[2017-04-06] MEDS: GABAPENTIN 400 MG CAP PO SCH ×3 (07:44→17:51)
[2017-04-06] MEDS: oxyCODONE HCL 10 MG CONTROLLED RELEASE TAB PO SCH ×2 (07:45→20:29)
[2017-04-06] MEDS: SODIUM CHLORIDE 0.9% FLUSH 10 ML FLUSH IV FLUSH SCH ×2 (07:49→20:30)
[2017-04-06 07:50] VITALS: BP 156/74; PULSE 69; RESP 19; TEMP 96.4; O2SAT 97
[2017-04-06 11:00] VITALS: BP 119/61; PULSE 61; RESP 19; TEMP 96.6; O2SAT 96
[2017-04-06] MEDS: oxyCODONE/ACETAMINOPHEN 10 MG/325 MG TAB PO PRN ×2 (13:35→23:30)
[2017-04-06] MEDS ORDERED: PHARMACY ORDERED LAB ONE (13:45)
[2017-04-06 16:30] VITALS: BP 131/62; PULSE 64; RESP 19; TEMP 98.2; O2SAT 95
--- NOTE | 2017-04-06 16:54 | HHI.PR ---
Subjective Remarks LATE ENTRY NOTE NOTE FROM 04/05/17 FAILED TO SAVE IN [facility]. Pt with NO new complaints. Objective Vitals Vital Signs Date Time Temp Pulse Resp B/P Pulse Ox O2 Delivery O2 Flow Rate FiO2 04/06/17 11:00 96.6 61 19 119/61 96 04/06/17 07:50 96.4 69 19 156/74 97 04/06/17 04:00 95.3 66 20 115/61 94 04/06/17 00:00 98.8 60 20 150/68 95 04/05/17 20:00 98.8 67 20 128/68 95 04/05/17 04/05/17 04/06/17 15:00 23:00 07:00 Intake Total 480 ml 740 ml 120 ml Output Total 400 ml 800 ml 600 ml Balance 80 ml -60 ml -480 ml Intake Oral 480 ml 240 ml 120 ml IV Total 500 ml Output Urine Total 400 ml 800 ml 600 ml # Bowel Movements 1 0 0 Result Diagram: 04/04/17 0746 04/05/17 0640 Imaging Last Impressions Abdomen/Pelvis CT 04/03/17 0000 Signed Impressions: Service Date/Time: Monday, April 03, 2017 15:05 - CONCLUSION: 1. There are some small para-aortic nodes in the retroperitoneum. 2. Incidental note is made of an IVC filter. 3. Exam is otherwise unremarkable. 4. No abscess identified. Jacky Camacho MD Chest X-Ray 04/02/17 [id number] Signed Impressions: Service Date/Time: Sunday, April 02, 2017 19:14 - CONCLUSION: No evidence of acute cardiopulmonary disease. Morales Ruff MD Objective Remarks GENERAL: NAD, AAOx3 CARDIO: Regular. RESP: CTA ABD: +BS, soft, non-tender, nondistended. EXT: decreased erythema/induration from admission at left buttock/flank/upper lateral thigh A/P Problem List: (1) Cellulitis Status: Chronic Plan: - Pt developed left buttock, flank and upper lateral thigh cellulitis that began about 4-5 days ago. - Pt had some Azithromycin at home which was started about 3 days ago but without improvement and pt with significant erythema and induration of the left flank/buttock/ upper thigh. - Pt was seen by his PCP yesterday and was referred to the ED for further evaluation. - Pt was started on IV Vancomycin in the ED and this was continued with pharmacy dosing. - Blood cultures (04/02) with 1/4 growing gram positive cocci. - CT Abd/pelvis with IV contrast (04/03/17) --> There are some small para-aortic nodes in the retroperitoneum. Incidental note is made of an IVC filter. Exam is otherwise unremarkable. No abscess identified. - reassess 04/07 - continue current treatment plan - Supportive care - Anticipate discharge in the next few days as long as clinical condition continues to improve. 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 home meds Assessment and Plan Patient examined. Assessment and plan formulated with Ro Kyle PA-C. I agree with the above. erythema at left flank, left buttock, and left upper/post thigh. Region with improvement from yesterday. Less erythema & less induration continue IV Vancomycin reassess 04/05 Giuseppe Sherman DO Apr 06, 2017 16:54
--- NOTE | 2017-04-06 17:02 | HHI.PR ---
Subjective Remarks Pt feeling better Erythema is improving Pt has been afebrile Objective Vitals Vital Signs Date Time Temp Pulse Resp B/P Pulse Ox O2 Delivery O2 Flow Rate FiO2 04/06/17 11:00 96.6 61 19 119/61 96 04/06/17 07:50 96.4 69 19 156/74 97 04/06/17 04:00 95.3 66 20 115/61 94 04/06/17 00:00 98.8 60 20 150/68 95 04/05/17 20:00 98.8 67 20 128/68 95 04/05/17 04/05/17 04/06/17 15:00 23:00 07:00 Intake Total 480 ml 740 ml 120 ml Output Total 400 ml 800 ml 600 ml Balance 80 ml -60 ml -480 ml Intake Oral 480 ml 240 ml 120 ml IV Total 500 ml Output Urine Total 400 ml 800 ml 600 ml # Bowel Movements 1 0 0 Result Diagram: 04/04/17 0746 04/05/17 0640 Other Results Laboratory Tests Test 04/05/17 04/06/17 06:40 13:45 Creatinine 0.79 MG/DL Estimat Glomerular Filtration 101 ML/MIN Rate Vancomycin Level Trough 16.7 MCG/ML Imaging Last Impressions Abdomen/Pelvis CT 04/03/17 0000 Signed Impressions: Service Date/Time: Monday, April 03, 2017 15:05 - CONCLUSION: 1. There are some small para-aortic nodes in the retroperitoneum. 2. Incidental note is made of an IVC filter. 3. Exam is otherwise unremarkable. 4. No abscess identified. Jacky Camacho MD Chest X-Ray 04/02/17 [id number] Signed Impressions: Service Date/Time: Sunday, April 02, 2017 19:14 - CONCLUSION: No evidence of acute cardiopulmonary disease. Morales Ruff MD Objective Remarks GENERAL: NAD, AAOx3 CARDIO: Regular. RESP: CTA ABD: +BS, soft, non-tender, nondistended. EXT: Erythema minimal of the left buttock, flank and upper lateral left thigh A/P Problem List: (1) Cellulitis Status: Chronic Plan: - Pt developed left buttock, flank and upper lateral thigh cellulitis that began about 4-5 days ago. - Pt had some Azithromycin at home which was started about 3 days ago but without improvement and pt with significant erythema and induration of the left flank/buttock/ upper thigh. - Pt was seen by his PCP and was referred to the ED for further evaluation. - Pt was started on IV Vancomycin in the ED and this was continued with pharmacy dosing. - Blood cultures (04/02) with 1/ growing Staph Epi, likely contaminant. - CT Abd/pelvis with IV contrast (04/03/17) --> There are some small para-aortic nodes in the retroperitoneum. Incidental note is made of an IVC filter. Exam is otherwise unremarkable. No abscess identified. - Pt has been improving clinically with the IV Vanc - Last dose of IV Vanc tomorrow morning and then will switch him to oral Abx and anticipate discharge tomorrow afternoon. 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 home meds Assessment and Plan Patient examined. Assessment and plan formulated with Ro Kyle PA-C. I agree with the above. Ro Kyle Apr 06, 2017 17:02 Giuseppe Sherman DO Apr 07, 2017 13:25
[2017-04-06 20:00] VITALS: BP 108/62; PULSE 62; RESP 20; TEMP 96.7; O2SAT 94
[2017-04-06] MEDS: GABAPENTIN 300 MG CAP PO SCH (20:28)
[2017-04-06] MEDS: ENOXAPARIN SODIUM 30 MG/0.3 ML SYRINGE SQ SCH (20:30)
[2017-04-07] VITALS: BP 140/65; PULSE 60; RESP 20; TEMP 96.7; O2SAT 96
[2017-04-07] MEDS: VANCOMYCIN INJ 1,500 MG in SODIUM CHLORID 0.9% 500 ML INJ 500 ML IV SCH (01:27)
[2017-04-07 04:00] VITALS: BP 124/74; PULSE 66; RESP 20; TEMP 96; O2SAT 95
[2017-04-07] MEDS: oxyCODONE/ACETAMINOPHEN 10 MG/325 MG TAB PO PRN ×2 (04:34→12:10)
[2017-04-07] MEDS: LEVOTHYROXINE SODIUM 50 MCG TAB PO SCH (05:30)
[2017-04-07] MEDS: NYSTATIN 100,000 U/GM PWD 15 GM BTL TOPICAL SCH ×2 (05:30→12:04)
[2017-04-07] MEDS: PANTOPRAZOLE SOD 40 MG DELAYED RELEASE TAB PO SCH (05:30)
[2017-04-07] MEDS: DULoxetine HCl DR 60 MG CAP PO SCH (08:15)
[2017-04-07 08:16] VITALS: BP 159/77; PULSE 62; RESP 19; TEMP 98; O2SAT 95
[2017-04-07] MEDS: TAMSULOSIN HCL 0.4 MG CAP PO SCH (08:16)
[2017-04-07] MEDS: GABAPENTIN 400 MG CAP PO SCH ×2 (08:16→12:03)
[2017-04-07] MEDS: BETHANECHOL CHL 25 MG TAB PO SCH ×2 (08:17→12:03)
[2017-04-07] MEDS: SODIUM CHLORIDE 0.9% FLUSH 10 ML FLUSH IV FLUSH SCH (08:17)
[2017-04-07] MEDS: DOCUSATE SODIUM 100 MG CAP PO SCH (08:17)
[2017-04-07] MEDS: NADOLOL 20 MG TAB PO SCH (08:17)
[2017-04-07] MEDS: oxyCODONE HCL 10 MG CONTROLLED RELEASE TAB PO SCH (08:17)
[2017-04-07 11:43] VITALS: BP 115/69; PULSE 62; RESP 19; TEMP 97.6; O2SAT 96
--- NOTE | 2017-04-07 13:31 | HHI.FF ---
Face to Face Verification Diagnosis: (1) Cellulitis (2) Quadriplegia (3) Neurogenic bladder (4) Chronic pain Physical Therapy Order: Evaluate and Treat, Improve ambulation, Strength and gait training Home Health Nursing Order: Medical education Signs/symptoms of disease process Medication education-adverse effect Nursing assessment with vital signs I have seen patient Serafin Samayoa on 04/07/17. My clinical findings support the need for the requested home health care services because: Ltd mobility - disease progression Deconditioned w/ increased weakness Med compliance is questionable Limited ability to care for self Need for psychosocial assistance Infection w/ risk of complications I certify that my clinical findings support that this patient is homebound because: Impaired cognitive ability/safety Unsteady gait/balance Unsafe to leave home unassisted Need for psychosocial assistance [id number] bed/chair Unable to use public transportation Giuseppe Sherman DO Apr 07, 2017 13:31
[2017-04-07] MEDS ORDERED: CEPH-460 PO (13:38)
--- NOTE | 2017-04-07 13:40 | HHI.DCPOC ---
Discharge Care Plan Diagnosis: (1) Cellulitis (2) Chronic pain (3) Neurogenic bladder Goals to Promote Your Health * To prevent worsening of your condition and complications * To maintain your health at the optimal level Directions to Meet Your Goals Take your medications as prescribed Follow your dietary instruction Follow activity as directed Keep your appointments as scheduled Take your immunizations and boosters as scheduled If your symptoms worsen call your PCP, if no PCP go to Urgent Care Center or Emergency Room Smoking is Dangerous to Your Health. Avoid second hand smoke Call the 24-hour hour crisis hotline for domestic abuse at Giuseppe Sherman DO Apr 07, 2017 13:40
--- NOTE | 2017-04-07 13:43 | HHI.DS ---
Discharge Summary Admission Date Apr 03, 2017 at 13:48 Discharge Date: Apr 07, 2017 Admitting Diagnosis CELLULITIS FAILED OUTPATIENT THERAPY (1) Cellulitis Diagnosis: Principal (2) Quadriplegia Diagnosis: Secondary (3) Neurogenic bladder Diagnosis: Secondary (4) Chronic pain Diagnosis: Secondary Brief History Mr. 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 He presented to the ED at [facility] on 04/02/17 for cellulitis of the left buttock and lateral thigh. This reportedly started about 4 days ago with an 8c, size area of erythema over the left buttock and upper thigh area and was febrile and overall feeling unwell. Pt had Azithromycin at home from a previous prescription which he started taking without any improvement. Pt was seen by his PCP, Dr. Branch, on 04/02/17 who referred him to the ED for admission and IV antibiotics as the pt appeared toxic in his office yesterday. CBC/BMP: 04/04/17 0746 04/07/17 0944 Significant Findings Laboratory Tests Test 04/06/17 13:45 Vancomycin Level Trough 16.7 MCG/ML (5.0-10.0) Imaging Last Impressions Abdomen/Pelvis CT 04/03/17 0000 Signed Impressions: Service Date/Time: Monday, April 03, 2017 15:05 - CONCLUSION: 1. There are some small para-aortic nodes in the retroperitoneum. 2. Incidental note is made of an IVC filter. 3. Exam is otherwise unremarkable. 4. No abscess identified. Jacky Camacho MD Chest X-Ray 04/02/17 [id number] Signed Impressions: Service Date/Time: Sunday, April 02, 2017 19:14 - CONCLUSION: No evidence of acute cardiopulmonary disease. Morales Ruff MD PE at Discharge GENERAL: NAD, AAOx3 CARDIO: Regular. RESP: CTA ABD: +BS, soft, non-tender, nondistended. EXT: Erythema minimal of the left buttock, flank and upper lateral left thigh Hospital Course (1) Cellulitis Status: Chronic Plan: - Pt developed left buttock, flank and upper lateral thigh cellulitis that began about 4-5 days prior to admission - Pt had some Azithromycin at home which was started about 3 days ago but without improvement and pt with significant erythema and induration of the left flank/buttock/ upper thigh. - Pt was seen by his PCP and was referred to the ED for further evaluation. - Pt was started on IV Vancomycin in the ED and this was continued with pharmacy dosing. (04/03 - 04/07/17) - Blood cultures (04/02) with 1/4 growing Staph Epi, likely contaminant. - CT Abd/pelvis with IV contrast (04/03/17) --> There are some small para-aortic nodes in the retroperitoneum. Incidental note is made of an IVC filter. Exam is otherwise unremarkable. No abscess identified. - Pt has been improved clinically with the IV Vanc - Pt with multiple drug allergies, no culture results to specifically guide therapy. - Case d/w pt's PCP. Will discharge on keflex 500mg PO TID - Pt will f/u with PCP, Dr. 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 home meds Pt Condition on Discharge: Stable Discharge Disposition: Disch w/ Home Health Serv Discharge Instructions DIET: Follow Instructions for: As Tolerated, No Restrictions Activities you can perform: Weight Bearing as Ly Follow up Referrals: PCP Follow-up - 3-[address] Giuseppe aSlazar New Medications: Cephalexin (Keflex) 500 Mg Cap 500 MG PO Q8H Infection #21 Ref 0 CAP Continued Medications: Ascorbic Acid (Vitamin C) 500 Mg Cap 500 MG PO DAILY Nutritional Supplement Ref 0 CAP Bethanechol (Bethanechol) 50 Mg Tab 50 MG PO QID Urinary Symptom Managemen #180 Ref 4 TAB Cetirizine (Zyrtec Allergy) 10 Mg Cap 10 MG PO DIRECTED Allergies Ref 0 CAP Diazepam (Valium) 5 Mg Tab 5 MG PO QID PRN ANXIETY Ref 0 TAB Docusate Sodium (Docusate Sodium) 100 Mg Cap 200 MG PO BID Prevent Constipation #[address] (Cymbalta DR) 60 Mg Capdr 60 MG PO DAILY #30 Ref 0 CAP Gabapentin (Gabapentin) 400 Mg Cap 400 CAP PO TID #30 Ref 0 CAP Hydrocortisone Rectal 2.5% (Proctosol Hc 2.5%) 2.5% Cream 1 APPLIC RECTAL BID PRN PAIN/INFLAMMATION #1 Ref 4 TUBE Levothyroxine (Synthroid) 50 Mcg Tab 50 MCG PO DAILY Thyroid #30 Ref 0 TAB Oxycodone ER (Oxycontin) 30 Mg Tab 30 MG PO BID Pain Management Ref 0 TAB Oxycodone-Acetaminophen (Percocet) 10-325 mg Tab 1 TAB PO DIRECTED PRN PAIN Ref 0 TAB Pantoprazole (Protonix) 40 Mg Tab 40 MG PO DAILY Reflux #30 Ref 0 TAB Polyethylene Glycol 3350 (Miralax) 17 Gm Powd.pack 17 GM PO DAILY Pravastatin (Pravastatin) 10 Mg Tab 10 MG PO DAILY Cholesterol Management #30 Ref 0 TAB Tamsulosin (Flomax) 0.4 Mg Cap 0.4 MG PO BID Manage Prostate Problems #180 Ref 4 CAP Tizanidine (Tizanidine) 6 Mg Cap 6 MG PO DIRECTED (2) tabs hs and (1) tab bid Muscle Spasm Ref 0 CAP Giuseppe Sherman DO Apr 07, 2017 13:43
[2017-04-07] MEDS: ONDANSETRON HCL 4 MG/2 ML VIAL IVP PRN (14:01)
[2017-04-18] MEDS ORDERED: CETI-14 PO (13:11)
[2017-04-18] MEDS ORDERED: VITA500T83 PO (13:11)
== END 2017-04-07 14:20 | disposition home health service (06) | DRG 602 ==
LOC: NEPC 13:34 → NEDA 19:03 → NEPFCDU 22:18 → OBSVTOIN 04-03 13:48 → N05B 04-03 17:00
PROVIDERS: ADMIT Hospitalist; ATTEND Hospitalist
DX: L03.116 Cellulitis of left lower limb (principal); G82.50 Quadriplegia, unspecified; N31.9 Neuromuscular dysfunction of bladder, unspecified; K76.0 Fatty (change of) liver, not elsewhere classified; L03.317 Cellulitis of buttock; F17.210 Nicotine dependence, cigarettes, uncomplicated; K21.9 Gastro-esophageal reflux disease without esophagitis; Z99.3 Dependence on wheelchair; G89.29 Other chronic pain; G47.33 Obstructive sleep apnea (adult) (pediatric); E03.9 Hypothyroidism, unspecified; R73.03 Prediabetes; J45.909 Unspecified asthma, uncomplicated
CPT/HCPCS: 71010; 74177; 80048; 80053; 80202; 82565; 83605; 83735; 85025; 87040; 87149; 87186; 87205; 96361; 96374; G0378; G8987-GP; G8988-GP; J1650; J2405; J2765; J3370; J3480; J7030; J7040; J7050; Q9967

== ENCOUNTER 2017-05-20 12:39 | Inpatient (IN) | payer MEDICARE ==
[~2017-05-20] VITALS: Ht 167.6 cm; Wt 91.0 kg
[2017-05-20] VITALS (8 sets, daily range): BP systolic 81–146; BP diastolic 48–76; PULSE 64–72; RESP 15–22; TEMP 97.8–99.1; O2SAT 93–94
[~2017-05-20 12:39] MED LIST changes: -ASCO500C PO; +CETI-14 PO; -COLA100C3 PO; +DOCU100C PO; -GABA300C5 PO; +GABA400C5 PO; -NADO20TA PO; +POLY17PO3 PO; +PRAV10TA PO; +VITA500T83 PO; -ZYRT10CA PO
[2017-05-20] MEDS ORDERED: SODIUM CHLOR 0.9% 1000 ML INJ 1,000 ML IV ONE (13:15)
--- NOTE | 2017-05-20 13:38 | RADRPT ---
EXAM DATE/TIME: 05/20/2017 13:19 [place] COMPARISON: CHEST SINGLE AP, April 02, 2017, 19:14. INDICATIONS : Fever MEDICAL HISTORY : Paraplegic. Cellulitis. SURGICAL HISTORY : None. ENCOUNTER: Initial ACUITY: 1 day PAIN SCORE: 0/10 LOCATION: chest FINDINGS: The lungs are clear without infiltrate, nodule, or mass. There is no appreciable pleural effusion fo r technique. Heart and mediastinum are unremarkable. CONCLUSION: No acute cardiopulmonary disease. Malclom Good MD on May 20, 2017 at 13:36 Board Certified Radiologist. This report was verified electronically.
[2017-05-20 13:58] LABS: ALT (GPT) 38 U/L (12-78); ANION GAP 7 MEQ/L (5-15); AST (GOT) 19 U/L (15-37); AUTOMATED NEUTROPHIL # 6.4 TH/MM3 (1.8-7.7); BASOPHIL % 0.4 % (0.0-2.0); BICARBONATE 30.8 MEQ/L (21.0-32.0); BLOOD UREA NITROGEN 9 MG/DL (7-18); CHLORIDE 101 MEQ/L (98-107); EOSINOPHIL # 0.1 TH/MM3 (0-0.4); EOSINOPHIL % 1.1 % (0.0-4.0); GLOMERULAR FILTRATION RATE 74 ML/MIN (>89); HEMATOCRIT 38.8 % (39.0-51.0); HEMO FLAGS DIFF FINAL; LYMPH % 34.8 % (9.0-44.0); LYMPHOCYTE # 3.7 TH/MM3 (1.0-4.8); MEAN CELL VOLUME 89.3 FL (80.0-100.0); MEAN CORPUSCULAR HGB CONC 33.6 % (32.0-36.0); MONO % 4.1 % (0.0-8.0); NEUT % 59.6 % (16.0-70.0); PLATELET COUNT 182 TH/MM3 (150-450); POTASSIUM 4.2 MEQ/L (3.5-5.1); RED BLOOD COUNT 4.35 MIL/MM3 (4.50-5.90); RED CELL DISTRIBUTION WIDTH 12.8 % (11.6-17.2); SODIUM (NA) 139 MEQ/L (136-145); WHITE BLOOD COUNT 10.7 TH/MM3 (4.0-11.0)
[2017-05-20] MEDS ORDERED: SODIUM CHLOR 0.9% 1000 ML INJ 1,000 ML IV SCH ×2 (14:00→14:30)
[2017-05-20 14:02] LABS: ALKALINE PHOSPHATASE 89 U/L (45-117); TOTAL BILIRUBIN ADULT 0.6 MG/DL (0.2-1.0)
[2017-05-20] MEDS ORDERED: TIZA6CAP3 PO (14:09)
[2017-05-20] MEDS ORDERED: VANCOMYCIN INJ 1,000 MG in SODIUM CHLOR 0.9% 250 ML INJ 250 ML IV ONE (14:30)
--- NOTE | 2017-05-20 14:38 | PD ---
HPI Chief Complaint: Altered Mental Status Time Seen by Provider: 14:35 Travel History International Travel<30 days: No Contact w/Intl Traveler<30days: No Traveled to known affect area: No History of Present Illness HPI 56-year-old male that presents to ED for evaluation of altered mental status. Patient was brought here for evaluation of this. 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 Patient states that he is able to urinate on his own but since Sunday he's noticed blood in his urine. Per patient has initial for him. He does have a history of kidney stones. He's also had diarrhea since yesterday and her is significant. Watery with no blood in it. Nobody is sick in the house. No nausea or vomiting. Today has noted that he is somewhat more lethargic than his normal. He does have significant allergies to different antibiotics. Patient was brought here for evaluation of altered mental status as well as the urinary or bowel movement issues. He states that he does have some lower abdominal pain mainly around the bladder. No chest pain or shortness of breath. No cough. No fevers chills or sweats. PFSH Past Medical History Blood Disorders: No Cancer: No Cardiovascular Problems: No Chemotherapy: No Diabetes: No Endocrine: No Gastrointestinal Disorders: Yes (RECTAL BLEED.) GERD: Yes Genitourinary: No Hepatitis: No Hiatal Hernia: No Immune Disorder: No Musculoskeletal: Yes (PT IS A QUADRIPLEGIC FOR TWO YEARS.) Neurologic: Yes Psychiatric: No Reproductive: No Respiratory: No Radiation Therapy: No Thyroid Disease: No Past Surgical History Abdominal Surgery: Yes (HAITAL HERNIA, CHOLECYSTECTOMY, ) AICD: No Arteriovenous Shunt: No Body Medical Devices: CERVICAL PLATE AND SCREWS POST ACCEDENT SX. Cardiac Surgery: No Cholecystectomy: Yes (10/08/06) Ear Surgery: No Endocrine Surgery: No Eye Surgery: No Genitourinary Surgery: Yes (ADRENAAL GLAND REMOVED) Gynecologic Surgery: No Insulin Pump: No Joint Replacement: No Oral Surgery: No Pacemaker: No Thoracic Surgery: No Other Surgery: Yes (&A 1972) Social History Alcohol Use: No Tobacco Use: Yes (1PPD) Substance Use: No Allergies-Medications (Allergen,Severity, Reaction): Coded Allergies: Baclofen (Verified Allergy, Severe, respiratory difficulty, 04/18/17) Cipro (Verified Allergy, Severe, respiratory difficulty, 04/18/17) Erythromycin (Verified Allergy, Severe, respiratory difficulty, 04/18/17) Penicillin (Verified Allergy, Severe, THROAT CLOSE, 04/18/17) Sulfa (Verified Allergy, Severe, respiratory difficulty, 04/18/17) Reported Meds & Prescriptions Reported Meds & Active Scripts Active Flomax (Tamsulosin HCl) 0.4 Mg Cap 0.4 Mg PO BID Proctosol Hc 2.5% (Hydrocortisone Rectal 2.5%) 2.5% Cream 1 Applic RECTAL BID PRN Bethanechol 50 Mg Tab 50 Mg PO QID Reported Tizanidine (Tizanidine HCl) 6 Mg Cap 12 Mg PO HS Zyrtec (Cetirizine HCl) 10 Mg Tab.rapdis 10 Mg PO DAILY Vitamin C ER (Ascorbic Acid) 500 Mg To 500 Mg PO DAILY Gabapentin 400 Mg Cap 400 Cap PO TID Docusate Sodium 100 Mg Cap 200 Mg PO BID Miralax (Polyethylene Glycol 3350) 17 Gm Powd.pack 17 Gm PO DAILY Mix 1 capful (17gm) in liquid of choice Pravastatin 10 Mg Tab 10 Mg PO DAILY Tizanidine (Tizanidine HCl) 6 Mg Cap 6 Mg PO BID Synthroid (Levothyroxine Sodium) 50 Mcg Tab 50 Mcg PO DAILY Protonix (Pantoprazole Sodium) 40 Mg Tab 40 Mg PO DAILY Percocet (Oxycodone-Acetaminophen) 10-325 mg Tab 1 Tab PO Q4-6H PRN Oxycontin (Oxycodone HCl) 30 Mg Tab 30 Mg PO BID Valium (Diazepam) 5 Mg Tab 5 Mg PO QID PRN Cymbalta DR (Duloxetine HCl) 60 Mg Capdr 60 Mg PO DAILY Review of Systems Except as stated in HPI: all other systems reviewed are Neg Physical Exam Narrative GENERAL: SKIN: Warm and dry. HEAD: Atraumatic. Normocephalic. EYES: Pupils equal and round. No scleral icterus. No injection or drainage. ENT: No nasal bleeding or discharge. Mucous membranes pink and moist. Tongue is midline. No uvula deviation. NECK: Trachea midline. No JVD. CARDIOVASCULAR: Regular rate and rhythm. No murmurs, S3, S4. RESPIRATORY: No accessory muscle use. Clear to auscultation. Breath sounds equal bilaterally. GASTROINTESTINAL: Abdomen soft, non-tender, nondistended. Hepatic and splenic margins not palpable. Genital exam: done with female nurse present, no sign of urethral discharge or mass, no testicular pain or deformity noted. MUSCULOSKELETAL: Extremities without clubbing, cyanosis, or edema. No obvious deformities. Full range of motion of the upper extremities but not the lower ones with diminished sensation. 2+ pulses bilaterally. NEUROLOGICAL: Awake and alert. No obvious cranial nerve deficits. Motor grossly within normal limits. Five out of 5 muscle strength in the arms and legs. Normal speech. PSYCHIATRIC: Appropriate mood and affect; insight and judgment normal. Data Data Last Documented VS Vital Signs Date Time Temp Pulse Resp B/P Pulse Ox O2 Delivery O2 Flow Rate FiO2 05/20/17 15:02 65 18 146/76 94 Nasal Cannula 05/20/17 14:00 2 05/20/17 12:48 99.1 Orders Blood Glucose (05/20/17 13:04) Oximetry (05/20/17 13:04) Iv Access Insert/Monitor (05/20/17 13:04) Ecg Monitoring (05/20/17 13:04) Oxygen Administration (05/20/17 13:04) Electrocardiogram (05/20/17 13:05) Complete Blood Count With Diff (05/20/17 13:05) Comprehensive Metabolic Panel (05/20/17 13:05) Lactic Acid Sepsis Protocol (05/20/17 13:05) Lipase (05/20/17 13:05) Troponin I (05/20/17 13:05) Urinalysis - C+S If Indicated (05/20/17 13:05) Blood Culture (05/20/17 13:05) Chest, Single Ap (05/20/17 13:05) Sodium Chlor 0.9% 1000 Ml Inj (Ns 1000 M (05/20/17 13:15) Ct Brain W/O Iv Contrast(Rout) (05/20/17 ) Sodium Chlor 0.9% 1000 Ml Inj (Ns 1000 M (05/20/17 14:00) Vancomycin Inj (Vancomycin Inj) (05/20/17 14:30) Ct Abd/Pel W Iv Contrast(Rout) (05/20/17 14:30) Sodium Chlor 0.9% 1000 Ml Inj (Ns 1000 M (05/20/17 14:30) Admit To Inpatient (05/20/17 ) Code Status (05/20/17 15:52) Vital Signs (Adult) Q4H (05/20/17 15:52) Activity Oob With Assistance (05/20/17 15:52) Percher / Telemetry .CONTINUOUS (05/20/17 15:52) Diet Heart Healthy (05/20/17 Dinner) Sodium Chloride 0.9% Flush (Ns Flush) (05/20/17 16:00) Sodium Chloride 0.9% Flush (Ns Flush) (05/20/17 21:00) Acetaminophen (Tylenol) (05/20/17 16:00) Ondansetron Inj (Zofran Inj) (05/20/17 16:00) Basic Metabolic Panel (Bmp) (05/21/17 06:00) Complete Blood Count With Diff (05/21/17 06:00) Electrocardiogram (05/20/17 15:52) Pt Request For Service (05/20/17 15:52) Enoxaparin Inj (Lovenox Inj) (05/20/17 16:00) Naloxone Inj (Narcan Inj) (05/20/17 16:00) Magnesium Hydroxide Liq (Milk Of Magnesi (05/20/17 16:00) Inpatient Certification (05/20/17 ) Urinary Catheter Insert/Apply (05/20/17 15:54) Bethanechol (Urecholine) (05/20/17 18:00) Diazepam (Valium) (05/20/17 16:00) Docusate Sodium (Colace) (05/20/17 21:00) Levothyroxine (Synthroid) (05/21/17 06:00) Oxycodone-Acetamin 10-325 Mg (Percocet 1 (05/20/17 16:00) Pantoprazole (Protonix) (05/21/17 09:00) Polyethylene Glycol (Miralax) (05/21/17 09:00) Pravastatin (Pravachol) (05/21/17 09:00) Tamsulosin (Flomax) (05/20/17 21:00) Cetirizine (Zyrtec) (05/21/17 09:00) Oxycodone Sr (Oxycontin Cr) (05/20/17 21:00) Tizanidine Hcl (Zanaflex) (05/20/17 21:00) Tizanidine Hcl (Zanaflex) (05/20/17 21:00) Duloxetine (Shaheen Camejo) (05/21/17 09:00) 1/2 Ns + Kcl 20 Meq Inj (1/2 Ns + Kcl 20 (05/20/17 16:00) Vancomycin Inj (Vancomycin Inj) (05/21/17 02:00) Admit Order (Ed Use Only) (05/20/17 16:02) Diphenhydramine Inj (Benadryl Inj) (05/20/17 16:15) Gabapentin (Neurontin) (05/20/17 18:00) Labs Laboratory Tests Test 05/20/17 13:15 White Blood Count 10.7 TH/MM3 Red Blood Count 4.35 MIL/MM3 Hemoglobin 13.0 GM/DL Hematocrit 38.8 % Mean Corpuscular Volume 89.3 FL Mean Corpuscular Hemoglobin 30.0 PG Mean Corpuscular Hemoglobin 33.6 % Concent Red Cell Distribution Width 12.8 % Platelet Count 182 TH/MM3 Mean Platelet Volume 7.7 FL Neutrophils (%) (Auto) 59.6 % Lymphocytes (%) (Auto) 34.8 % Monocytes (%) (Auto) 4.1 % Eosinophils (%) (Auto) 1.1 % Basophils (%) (Auto) 0.4 % Neutrophils # (Auto) 6.4 TH/MM3 Lymphocytes # (Auto) 3.7 TH/MM3 Monocytes # (Auto) 0.4 TH/MM3 Eosinophils # (Auto) 0.1 TH/MM3 Basophils # (Auto) 0.0 TH/MM3 CBC Comment DIFF FINAL Differential Comment Sodium Level 139 MEQ/L Potassium Level 4.2 MEQ/L Chloride Level 101 MEQ/L Carbon Dioxide Level 30.8 MEQ/L Anion Gap 7 MEQ/L Blood Urea Nitrogen 9 MG/DL Creatinine 1.03 MG/DL Estimat Glomerular Filtration 74 ML/MIN Rate Random Glucose 145 MG/DL Lactic Acid Level 2.2 mmol/L Calcium Level 8.9 MG/DL Total Bilirubin 0.6 MG/DL Aspartate Amino Transf 19 U/L (AST/SGOT) Alanine Aminotransferase 38 U/L (ALT/SGPT) Alkaline Phosphatase 89 U/L Troponin I LESS THAN 0.02 NG/ML Total Protein 7.3 GM/DL Albumin 3.4 GM/DL Lipase 85 U/L MDM Medical Decision Making Medical Screen Exam Complete: Yes Emergency Medical Condition: Yes Medical Record Reviewed: Yes Interpretation(s) CBC & BMP Diagram 05/20/17 13:15 LFTS WNL Last Impressions Abdomen/Pelvis CT 05/20/17 1430 Signed Impressions: Service Date/Time: Saturday, May 20, 2017 14:41 - CONCLUSION: 1. Severe hepatic steatosis. 2. Bladder wall thickening, nonspecific but can be seen with infection and neoplastic process.. 3. Small stable retroperitoneal lymph nodes. 1. Sergio Morrow MD Chest X-Ray 05/20/17 1305 Signed Impressions: Service Date/Time: Saturday, May 20, 2017 13:19 - CONCLUSION: No acute cardiopulmonary disease. Malcolm Good MD Head CT 05/20/17 0000 Signed Impressions: Service Date/Time: Saturday, May 20, 2017 14:36 - CONCLUSION: Unremarkable study. Malcolm Good MD LFTS WNL troponin and CKMB negative lactic acid of 2.2 Differential Diagnosis Altered mental status versus sepsis versus dehydration versus gastroenteritis versus UTI versus urethritis versus cellulitis versus electrolyte abnormality Narrative Course 56-year-old male that presents to the ED for evaluation of altered mental status. Patient was properly examined and was found to have signs and symptoms consistent appears to be altered mental status. Patient is somewhat slow to answer questions which per is not usual for him. He does appear to be dry and triaged did a blood pressure that was low. Labs and imaging were ordered. Labs and imaging show lactic acidosis. Imaging otherwise unremarkable. CT of the abdomen did show what appears to be possible inflammatory disease to the bladder versus infectious versus neoplastic. Patient does complain of bleeding from the urethra. Urine still not received. Patient still somewhat altered. He was given 2 L of fluid. She still somewhat altered. At this time I recommend admission. Patient was started on vancomycin initially for suspected sepsis. Likely urinary source. Case was discussed in my attending Dr. Loja who agrees to admission. [facility] contacted and Dr Sherman agrees to admission. I discussed this with family and patient and agree with plan. They do mention to me that his scalp its very itchy and he is not sure if it is from the vancomycin which he has had before. Does appear to have allergic reaction only on scalp. No SOB or anaphylaxis. Will give benadryl. Diagnosis Primary Impression: Altered mental status Qualified Code: R41.82 - Altered mental status, unspecified altered mental status type Additional Impression: Cystitis Admitting Information Admitting Physician Requests: Observation Cortez Brian May 20, 2017 14:38
--- NOTE | 2017-05-20 15:02 | RADRPT ---
EXAM DATE/TIME: 05/20/2017 14:36 [facility] COMPARISON: No previous studies available for comparison. INDICATIONS : Altered mental status. RADIATION DOSE: 56.35 CTDIvol (mGy) MEDICAL HISTORY : Gastroesophageal reflux disease. Hernia, hiatal. Quadripalegic SURGICAL HISTORY : Cholecystectomy. Neck ENCOUNTER: Initial ACUITY: 1 day PAIN SCALE: 0/10 LOCATION: cranial TECHNIQUE: Multiple contiguous axial images were obtained of the head. Using automated exposure control and adj ustment of the mA and/or kV according to patient size, radiation dose was kept as low as reasonably a chievable to obtain optimal diagnostic quality images. DICOM format image data is available electro nically for review and comparison. FINDINGS: There is no evidence for intracranial hemorrhage, mass effect, mass lesions, edema, or extra-axial fl uid collections. The visualized bony structures appear intact. The ventricles are normal size for t he patient's age. There are no signs of acute infarction for technique. There is punctate calcificat ion in the left posterior temporal lobe benign in appearance of uncertain etiology almost 2 mm in siz e. CONCLUSION: Unremarkable study. Malcolm Good MD on May 20, 2017 at 14:59 Board Certified Radiologist. This report was verified electronically.
--- NOTE | 2017-05-20 15:20 | RADRPT ---
EXAM DATE/TIME: 05/20/2017 14:41 [facility] COMPARISON: No previous studies available for comparison. INDICATIONS : Burning sensation when urinating.Diarrhea. IV CONTRAST: cc 100 IV ORAL CONTRAST: No oral contrast ingested. RADIATION DOSE: 9.96 CTDIvol (mGy) MEDICAL HISTORY : Gastroesophageal reflux disease. Hernia, hiatal. Quadriplegic SURGICAL HISTORY : Cholecystectomy. Adrenal and neck. ENCOUNTER: Initial ACUITY: 2 days PAIN SCALE: 0/10 LOCATION: abdomen TECHNIQUE: Volumetric scanning of the abdomen and pelvis was performed. Using automated exposure control and ad justment of the mA and/or kV according to patient size, radiation dose was kept as low as reasonably achievable to obtain optimal diagnostic quality images. DICOM format image data is available electro nically for review and comparison. FINDINGS: LOWER LUNGS: Minimal left basilar atelectasis. LIVER: Homogeneous density without lesion. There is no dilation of the biliary tree. No calcified gallston es. SPLEEN: Normal size without lesion. PANCREAS: Within normal limits. KIDNEYS: Normal in size and shape. There is no mass, stone or hydronephrosis. ADRENAL GLANDS: Within normal limits. VASCULAR: There is no aortic aneurysm. Inferior vena cava filter again seen and unchanged. BOWEL/MESENTERY: The stomach, small bowel, and colon demonstrate no acute abnormality. There is no free intraperitone al air or fluid. ABDOMINAL WALL: Within normal limits. RETROPERITONEUM: Small scattered retroperitoneal adenopathy. BLADDER: There is wall thickening without definite mass. REPRODUCTIVE: Within normal limits. INGUINAL: There is no lymphadenopathy or hernia. MUSCULOSKELETAL: Within normal limits for patient age. CONCLUSION: 1. Severe hepatic steatosis. 2. Bladder wall thickening, nonspecific but can be seen with infection and neoplastic process.. 3. Small stable retroperitoneal lymph nodes. 1. Sergio Morrow MD on May 20, 2017 at 15:15 Board Certified Radiologist. This report was verified electronically.
[2017-05-20 15:32] LABS: LACTIC ACID GHOST NOT REPORTABLE
[2017-05-20] MEDS ORDERED: DIAZEPAM 5 MG TAB PO PRN (16:00)
[2017-05-20] MEDS ORDERED: ACETAMINOPHEN 325 MG TAB PO PRN (16:00)
[2017-05-20] MEDS ORDERED: 1/2 NS + KCL 20 MEQ INJ 1,000 ML IV SCH (16:00)
[2017-05-20] MEDS ORDERED: MAGNESIUM HYDROXIDE SUSP 30 ML CUP PO PRN (16:00)
[2017-05-20] MEDS ORDERED: ONDANSETRON HCL 4 MG/2 ML VIAL IVP PRN (16:00)
[2017-05-20] MEDS ORDERED: SODIUM CHLORIDE 0.9% FLUSH 10 ML FLUSH IV FLUSH PRN (16:00)
[2017-05-20] MEDS ORDERED: NALOXONE HCL 0.4 MG/ML AMP IV PRN (16:00)
[2017-05-20] MEDS ORDERED: Vancomycin Consult Pharmacy 1 EA OTHER SCH (16:15)
[2017-05-20] MEDS ORDERED: diphenhydrAMINE HCL 50 MG/ML VIAL IV PUSH ONE (16:15)
[2017-05-20] MEDS: ENOXAPARIN SODIUM 30 MG/0.3 ML SYRINGE SQ SCH (17:21)
[2017-05-20 17:47] LABS: BACTERIA, URINE FEW /hpf; BLOOD, URINE MOD (NEG); GLUCOSE,URINE NEG (NEG); KETONE, URINE NEG (NEG); MUCUS URINE FEW /lpf (OCC); SQUAMOUS EPITHELIAL CELL URINE 1 /hpf (0-5); TRANSITIONAL EPI CELLS, URINE 1 /hpf
[2017-05-20 17:50] LABS: COMMENT (UR) CATH-CULTURE IND; CULTURE IF INDICATED CATH CULTURE IND; NITRITE,URINE POS (NEG); URINE COLOR DARK-BROWN (YELLW/STRAW)
[2017-05-20] MEDS: GABAPENTIN 300 MG CAP PO SCH (18:22)
[2017-05-20] MEDS: BETHANECHOL CHL 25 MG TAB PO SCH ×2 (18:29→21:06)
--- NOTE | 2017-05-20 18:50 | EKG ---
Date Performed: 05/20/2017 Time Performed: 13:47:09 PTAGE: 56 years EKG: Sinus rhythm BORDERLINE LEFT AXIS DEVIATION BORDERLINE ECG NO PREVIOUS TRACING DOCTOR: Aubrey Ryan Interpretating Date/Time 05/20/2017 18:49:48
[2017-05-20] MEDS: SODIUM CHLORIDE 0.9% FLUSH 10 ML FLUSH IV FLUSH SCH (21:00)
--- NOTE | 2017-05-20 21:01 | HHI.HP ---
HPI Service [facility] Hospitalists Primary Care Physician Non-Staff Admission Diagnosis altered mental status, cystitis Chief Complaint: AMS Travel History International Travel<30 Days: No Contact w/Intl Traveler <30 Da: No Traveled to Known Affected Are: No Sepsis Criteria Sepsis Criteria (SIRS+source): Infect source susp/known Severe Sepsis (+one): Hypotension Criteria Outcome: Meets SIRS criteria History of Present Illness Mr. 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 Pt brought to the for evaluation of AMS. Pt noted blood in his urine which started 2 days ago. Pt does have a previous h/o nephrolithiasis. Pt also c/o diarrhea which has been watery and without blood. Pt has had NO stool since arrival at [place]. Pt denies recent travel or sick contacts. Pt denies N/V. Pt c/o suprapubic pain. No c/o cough, chest pain, or SOB. Today has noted that he is somewhat more lethargic than his normal. He does have significant allergies to different antibiotics. Review of Systems Constitutional: DENIES: Diaphoretic episodes, Fatigue, Fever, Weight gain, Weight loss, Chills, Dizziness, Change in appetite, Night Sweats Endocrine: DENIES: Heat/cold intolerance, Polydipsia, Polyuria, Polyphagia Eyes: DENIES: Blurred vision, Diplopia, Eye inflammation, Eye pain, Vision loss , Photosensitivity, Double Vision Ears, nose, mouth, throat: DENIES: Tinnitus, Hearing loss, Vertigo, Nasal discharge, Oral lesions, Throat pain, Hoarseness, Ear Pain, Running Nose, Epistaxis, Sinus Pain, Toothache, Odynophagia Respiratory: DENIES: Apneas, Cough, Snoring, Wheezing, Hemoptysis, Sputum production, Shortness of breath Cardiovascular: DENIES: Chest pain, Palpitations, Syncope, Dyspnea on Exertion , PND, Lower Extremity Edema, Orthopnea, Claudication Gastrointestinal: COMPLAINS OF: See HPI, DENIES: Abdominal pain, Black stools , Bloody stools, BRB per rectum, Constipation, Diarrhea, GERD, Nausea, Reflux, Vomiting, Difficulty Swallowing, Anorexia Genitourinary: COMPLAINS OF: Hematuria, DENIES: Urinary frequency, Urinary incontinence, Urgency, Dysuria, Nocturia Musculoskeletal: DENIES: Joint pain, Muscle aches, Stiffness, Joint Swelling, Back pain, Neck pain Integumentary: DENIES: Abnormal pigmentation, Nail changes, Pruritus, Rash Hematologic/lymphatic: DENIES: Bruising, Lymphadenopathy Immunologic/allergic: DENIES: Eczema, Urticaria Neurologic: COMPLAINS OF: Abnormal gait, DENIES: Headache, Localized weakness , Paresthesias, Seizures, Speech Problems, Tremor, Poor Balance Psychiatric: DENIES: Anxiety, Confusion, Mood changes, Depression, Hallucinations, Agitation, Suicidal Ideation, Homicidal Ideation, Delusions, History of Bipolar, History of Schizophrenia Past Family Social History Past Medical History Quadriplegia, C5-C7 injury after industrial accident in 2010 and is wheelchair bound Chronic pain Neurogenic bladder KAVON Prediabetes Hypothyroidism Fatty liver/Hepatomegaly GERD Hx of BCC on face Hx of adrenal cortical adenoma Asthma Allergic rhinitis Past Surgical History Adrenalectomy Cervical vertebral fusion Cholecystectomy Rotator cuff repair Umbilical hernia repair Tonsillectomy/Adenoidectomy Allergies: Coded Allergies: Baclofen (Verified Allergy, Severe, respiratory difficulty, 04/18/17) Cipro (Verified Allergy, Severe, respiratory difficulty, 04/18/17) Erythromycin (Verified Allergy, Severe, respiratory difficulty, 04/18/17) Penicillin (Verified Allergy, Severe, THROAT CLOSE, 04/18/17) Sulfa (Verified Allergy, Severe, respiratory difficulty, 04/18/17) Family History Non-contributory Social History - Hx of tobacco use Denies any alcohol or illicit drug use Physical Exam Vital Signs Vital Signs Date Time Temp Pulse Resp B/P Pulse Ox O2 Delivery O2 Flow Rate FiO2 05/20/17 18:00 72 15 129/72 93 Room Air 05/20/17 16:00 68 16 128/60 93 Room Air 05/20/17 15:02 65 18 146/76 94 Nasal Cannula 05/20/17 14:00 64 16 94/54 93 Nasal Cannula 2 05/20/17 13:39 92 Room Air 05/20/17 13:39 93 Room Air 05/20/17 12:48 99.1 64 22 83/48 94 05/20/17 12:42 97.8 67 15 81/50 94 Physical Exam GENERAL: This is a well-nourished, well-developed patient, in no apparent distress. SKIN: No rashes, ecchymoses or lesions. Cool and dry. HEAD: Atraumatic. Normocephalic. No temporal or scalp tenderness. EYES: Pupils equal round and reactive. Extraocular motions intact. No scleral icterus. No injection or drainage. ENT: Nose without bleeding, purulent drainage or septal hematoma. Throat without erythema, tonsillar hypertrophy or exudate. Uvula midline. Airway patent. NECK: Trachea midline. No JVD or lymphadenopathy. Supple, nontender, no meningeal signs. CARDIOVASCULAR: Regular rate and rhythm without murmurs, gallops, or rubs. RESPIRATORY: Clear to auscultation. Breath sounds equal bilaterally. No wheezes , rales, or rhonchi. GASTROINTESTINAL: Abdomen soft, non-tender, nondistended. No hepato-splenomegaly , or palpable masses. No guarding. MUSCULOSKELETAL: Extremities without clubbing, cyanosis, or edema. No joint tenderness, effusion, or edema noted. No calf tenderness. Negative Homans sign bilaterally. NEUROLOGICAL: A&Ox3 Laboratory Laboratory Tests Test 05/20/17 05/20/17 13:15 16:40 White Blood Count 10.7 Red Blood Count 4.35 Hemoglobin 13.0 Hematocrit 38.8 Mean Corpuscular Volume 89.3 Mean Corpuscular Hemoglobin 30.0 Mean Corpuscular Hemoglobin 33.6 Concent Red Cell Distribution Width 12.8 Platelet Count 182 Mean Platelet Volume 7.7 Neutrophils (%) (Auto) 59.6 Lymphocytes (%) (Auto) 34.8 Monocytes (%) (Auto) 4.1 Eosinophils (%) (Auto) 1.1 Basophils (%) (Auto) 0.4 Neutrophils # (Auto) 6.4 Lymphocytes # (Auto) 3.7 Monocytes # (Auto) 0.4 Eosinophils # (Auto) 0.1 Basophils # (Auto) 0.0 CBC Comment DIFF FINAL Differential Comment Sodium Level 139 Potassium Level 4.2 Chloride Level 101 Carbon Dioxide Level 30.8 Anion Gap 7 Blood Urea Nitrogen 9 Creatinine 1.03 Estimat Glomerular Filtration 74 Rate Random Glucose 145 Lactic Acid Level 2.2 1.2 Calcium Level 8.9 Total Bilirubin 0.6 Aspartate Amino Transf 19 (AST/SGOT) Alanine Aminotransferase 38 (ALT/SGPT) Alkaline Phosphatase 89 Troponin I LESS THAN 0.02 Total Protein 7.3 Albumin 3.4 Lipase 85 Urine Color DARK-BROWN Urine Turbidity HAZY Urine pH 6.0 Urine Specific [place] GREATER THAN 1.050 Urine Protein 30 Urine Glucose (UA) NEG Urine Ketones NEG Urine Occult Blood MOD Urine Nitrite POS Urine Bilirubin NEG Urine Urobilinogen 4.0 Urine Leukocyte Esterase MOD Urine RBC Urine WBC 70 Urine Squamous Epithelial 1 Cells Urine Transitional Epithelial 1 Cells Urine Amorphous Sediment RARE Urine Bacteria FEW Urine Mucus FEW Microscopic Urinalysis Comment CATH-CULTURE IND Date/Time Procedure Status Source Growth 05/20/17 16:40 Urine Culture Received Urine Catheterized Urine Pending 05/20/17 13:15 Aerobic Blood Culture Received Blood Peripheral Pending 05/20/17 13:15 Anaerobic Blood Culture Received Blood Peripheral Pending Result Diagram: 05/20/17 1315 05/20/17 1315 Imaging Last Impressions Abdomen/Pelvis CT 05/20/17 1430 Signed Impressions: Service Date/Time: Saturday, May 20, 2017 14:41 - CONCLUSION: 1. Severe hepatic steatosis. 2. Bladder wall thickening, nonspecific but can be seen with infection and neoplastic process.. 3. Small stable retroperitoneal lymph nodes. 1. Sergio Morrow MD Chest X-Ray 05/20/17 1305 Signed Impressions: Service Date/Time: Saturday, May 20, 2017 13:19 - CONCLUSION: No acute cardiopulmonary disease. Malcolm Good MD Head CT 05/20/17 0000 Signed Impressions: Service Date/Time: Saturday, May 20, 2017 14:36 - CONCLUSION: Unremarkable study. Malcolm Good MD Septic Shock Reassessment Heart: Regular rate and rhythm Lungs: Clear Skin: Warm Peripheral Pulses: Bounding Right Radial Bounding Left Radial Bounding Right Popliteal Bounding Left Popliteal Bounding Right Dorsalis Pedis Bounding Left Dorsalis Pedis Bounding Right Posterior Tibial Bounding Left Posterior Tibial Capillary Refill: Brisk Assessment and Plan Problem List: (1) Cystitis Status: Acute Plan: - chronic neurogenic bladder - CT abd/pelvis (05/20/17) --> bladder wall thickening - Abnormal UA, Urine Cx --> pending - blood Cx --> pending - Vancomycin (05/20/17- present) - bethanechol - blood pressure readings have improved with IV fluid resuscitation and initiation of abx - follow culture results - observe - DVT prophylaxis with lovenox - supportive care (2) Altered mental status Status: Acute Plan: - likely d/t UTI - SIRS - CT brain (05/20/17) --> NO acute findings - see above (3) Quadriplegia Status: Chronic Plan: - supportive care (4) Chronic pain Status: Chronic Plan: - cymbalta, scheduled oxycontin, prn zanaflex, gabapentin - prn percocet (5) Hypothyroid Status: Chronic Plan: - levothyroxine Physician Certification 2 Midnight Certification Type: Admission for Inpatient Services Order for Inpatient Services The services are ordered in accordance with Medicare regulations or non- Medicare payer requirements, as applicable. In the case of services not specified as inpatient-only, they are appropriately provided as inpatient services in accordance with the 2-midnight benchmark. Estimated LOS (days): 3 3 days is the estimated time the patient will need to remain in the hospital, assuming treatment plan goals are met and no additional complications. Post-Hospital Plan: Not yet determined Problem Qualifiers (1) Altered mental status: Qualified Code: R41.82 - Altered mental status, unspecified altered mental status type (2) Chronic pain: Qualified Code: G89.4 - Chronic pain syndrome (3) Hypothyroid: Qualified Code: E03.9 - Hypothyroidism, unspecified type Giuseppe Sherman DO May 20, 2017 21:01
[2017-05-20] MEDS: DOCUSATE SODIUM 100 MG CAP PO SCH (21:07)
[2017-05-20] MEDS: TAMSULOSIN HCL 0.4 MG CAP PO SCH (21:07)
[2017-05-20] MEDS: oxyCODONE HCL 10 MG CONTROLLED RELEASE TAB PO SCH (23:28)
[2017-05-21] VITALS (7 sets, daily range): BP systolic 104–168; BP diastolic 56–76; PULSE 57–94; RESP 18–20; TEMP 97.3–98.4; O2SAT 94–97
[2017-05-21] MEDS ORDERED: VANCOMYCIN INJ 1,000 MG in SODIUM CHLOR 0.9% 250 ML INJ 250 ML IV SCH (02:00)
[2017-05-21] MEDS: LEVOTHYROXINE SODIUM 50 MCG TAB PO SCH (05:40)
[2017-05-21 09:18] LABS: AUTOMATED NEUTROPHIL # 3.7 TH/MM3 (1.8-7.7); BASOPHIL % 0.6 % (0.0-2.0); EOSINOPHIL # 0.2 TH/MM3 (0-0.4); EOSINOPHIL % 2.3 % (0.0-4.0); HEMATOCRIT 41.1 % (39.0-51.0); HEMO FLAGS DIFF FINAL; LYMPH % 38.2 % (9.0-44.0); LYMPHOCYTE # 2.6 TH/MM3 (1.0-4.8); MEAN CELL VOLUME 88.7 FL (80.0-100.0); MEAN CORPUSCULAR HEMOGLOBIN 29.7 PG (27.0-34.0); MEAN CORPUSCULAR HGB CONC 33.5 % (32.0-36.0); MONO % 5.8 % (0.0-8.0); NEUT % 53.1 % (16.0-70.0); PLATELET COUNT 153 TH/MM3 (150-450); RED BLOOD COUNT 4.63 MIL/MM3 (4.50-5.90); RED CELL DISTRIBUTION WIDTH 12.9 % (11.6-17.2); WHITE BLOOD COUNT 6.9 TH/MM3 (4.0-11.0)
[2017-05-21 09:21] LABS: BICARBONATE 29.5 MEQ/L (21.0-32.0); POTASSIUM 4.2 MEQ/L (3.5-5.1)
[2017-05-21] MEDS: PRAVASTATIN SOD 10 MG TAB PO SCH (10:08)
[2017-05-21] MEDS: BETHANECHOL CHL 25 MG TAB PO SCH ×4 (10:08→21:57)
[2017-05-21] MEDS: TAMSULOSIN HCL 0.4 MG CAP PO SCH ×2 (10:09→21:58)
[2017-05-21] MEDS: DOCUSATE SODIUM 100 MG CAP PO SCH ×2 (10:09→21:57)
[2017-05-21] MEDS: DULoxetine HCl DR 60 MG CAP PO SCH (10:09)
[2017-05-21] MEDS: PANTOPRAZOLE SOD 40 MG DELAYED RELEASE TAB PO SCH (10:09)
[2017-05-21] MEDS: GABAPENTIN 300 MG CAP PO SCH ×3 (10:10→17:41)
[2017-05-21] MEDS: oxyCODONE HCL 10 MG CONTROLLED RELEASE TAB PO SCH ×2 (10:11→21:58)
[2017-05-21] MEDS: POLYETHYLENE GLYCOL 17 GM PKG PO SCH (10:11)
--- NOTE | 2017-05-21 12:27 | HHI.PR ---
Subjective Remarks feels better mentally much better per . Objective Vitals heart reg lung cta abd s/nt ext no edema nicholas. Vital Signs Date Time Temp Pulse Resp B/P Pulse Ox O2 Delivery O2 Flow Rate FiO2 05/21/17 08:00 97.8 61 18 140/74 96 05/21/17 04:00 97.3 57 18 168/76 94 05/21/17 00:00 98.1 60 18 145/66 95 05/20/17 20:00 98.2 69 20 112/66 94 05/20/17 18:00 72 15 129/72 93 Room Air 05/20/17 16:00 68 16 128/60 93 Room Air 05/20/17 15:02 65 18 146/76 94 Nasal Cannula 05/20/17 14:00 64 16 94/54 93 Nasal Cannula 2 05/20/17 13:39 92 Room Air 05/20/17 13:39 93 Room Air 05/20/17 12:48 99.1 64 22 83/48 94 05/20/17 12:42 97.8 67 15 81/50 94 05/20/17 05/20/17 05/21/17 15:00 23:00 07:00 Output Total 1000 ml Balance -1000 ml Output Urine Total 1000 ml Result Diagram: 05/21/17 0750 05/21/17 0750 Imaging Last Impressions Abdomen/Pelvis CT 05/20/17 1430 Signed Impressions: Service Date/Time: Saturday, May 20, 2017 14:41 - CONCLUSION: 1. Severe hepatic steatosis. 2. Bladder wall thickening, nonspecific but can be seen with infection and neoplastic process.. 3. Small stable retroperitoneal lymph nodes. 1. Sergio Morrow MD Chest X-Ray 05/20/17 1305 Signed Impressions: Service Date/Time: Saturday, May 20, 2017 13:19 - CONCLUSION: No acute cardiopulmonary disease. Malcolm Good MD Head CT 05/20/17 0000 Signed Impressions: Service Date/Time: Saturday, May 20, 2017 14:36 - CONCLUSION: Unremarkable study. Malcolm Good MD A/P Problem List: (1) Cystitis Status: Acute Plan: - chronic neurogenic bladder - CT abd/pelvis (05/20/17) --> bladder wall thickening - Abnormal UA, Urine Cx --> pending - blood Cx --> pending - Vancomycin (05/20/17- present). - Aztreonam in pcn allergic pt for now. - bethanechol - blood pressure readings have improved with IV fluid resuscitation and initiation of abx - DVT prophylaxis with lovenox remove nicholas and d/c once cx available. says he has cysto planned for next month. he is mentally back to nml and dysuria much better. (2) Altered mental status Status: Acute Plan: - likely d/t UTI - SIRS - CT brain (05/20/17) --> NO acute findings - see above (3) Quadriplegia Status: Chronic Plan: - supportive care (4) Chronic pain Status: Chronic Plan: - cymbalta, scheduled oxycontin, prn zanaflex, gabapentin - prn percocet (5) Hypothyroid Status: Chronic Plan: - levothyroxine Problem Qualifiers (1) Altered mental status: Qualified Code: R41.82 - Altered mental status, unspecified altered mental status type (2) Chronic pain: Qualified Code: G89.4 - Chronic pain syndrome (3) Hypothyroid: Qualified Code: E03.9 - Hypothyroidism, unspecified type Peterson Rosales MD May 21, 2017 12:27
[2017-05-21] MEDS: AZTREONAM INJ 1,000 MG in SODIUM CHLORIDE 0.9% INJ 100 ML IV SCH ×2 (15:00→22:12)
[2017-05-21] MEDS ORDERED: VANCOMYCIN 1,500 MG/NS 500 ML IV SCH ×2 (16:00)
[2017-05-21] MEDS: ENOXAPARIN SODIUM 30 MG/0.3 ML SYRINGE SQ SCH (16:00)
[2017-05-21] MEDS: SODIUM CHLORIDE 0.9% FLUSH 10 ML FLUSH IV FLUSH SCH (21:00)
[2017-05-22] VITALS (7 sets, daily range): BP systolic 95–168; BP diastolic 55–98; PULSE 58–118; RESP 17–20; TEMP 97.1–98.4; O2SAT 93–97
[2017-05-22] MEDS: LEVOTHYROXINE SODIUM 50 MCG TAB PO SCH (06:27)
[2017-05-22] MEDS: AZTREONAM INJ 1,000 MG in SODIUM CHLORIDE 0.9% INJ 100 ML IV SCH ×3 (06:27→22:00)
[2017-05-22] MEDS: BETHANECHOL CHL 25 MG TAB PO SCH ×4 (10:43→22:00)
[2017-05-22] MEDS: PANTOPRAZOLE SOD 40 MG DELAYED RELEASE TAB PO SCH (10:44)
[2017-05-22] MEDS: DOCUSATE SODIUM 100 MG CAP PO SCH ×2 (10:44→22:00)
[2017-05-22] MEDS: TAMSULOSIN HCL 0.4 MG CAP PO SCH ×2 (10:44→22:00)
[2017-05-22] MEDS: PRAVASTATIN SOD 10 MG TAB PO SCH (10:44)
[2017-05-22] MEDS: CETIRIZINE HCL 10 MG TAB PO SCH (10:44)
[2017-05-22] MEDS: POLYETHYLENE GLYCOL 17 GM PKG PO SCH (10:44)
[2017-05-22] MEDS: oxyCODONE HCL 10 MG CONTROLLED RELEASE TAB PO SCH ×3 (10:45→20:20)
[2017-05-22] MEDS: DULoxetine HCl DR 60 MG CAP PO SCH (10:45)
[2017-05-22] MEDS: GABAPENTIN 300 MG CAP PO SCH ×3 (10:45→17:27)
--- NOTE | 2017-05-22 11:45 | HHI.PR ---
Subjective Remarks feels much better. eager for d/c Objective Vitals heart reg lung cta ab ds/nt ext no edema Vital Signs Date Time Temp Pulse Resp B/P Pulse Ox O2 Delivery O2 Flow Rate FiO2 05/22/17 08:00 97.5 66 17 128/74 95 05/22/17 04:00 97.3 67 18 119/75 93 05/22/17 00:00 98.4 92 20 129/65 97 05/21/17 22:12 94 05/21/17 20:00 98.1 94 18 126/59 94 05/21/17 16:00 97.9 63 18 104/56 94 05/21/17 12:00 98.1 82 18 110/69 95 05/21/17 05/21/17 05/22/17 15:00 23:00 07:00 Intake Total 1200 ml Output Total 1750 ml 2100 ml Balance -550 ml -2100 ml Intake Oral 1200 ml Output Urine Total 1750 ml 2100 ml # Bowel Movements 1 Result Diagram: 05/21/17 0750 05/21/17 0750 Imaging Last Impressions Abdomen/Pelvis CT 05/20/17 1430 Signed Impressions: Service Date/Time: Saturday, May 20, 2017 14:41 - CONCLUSION: 1. Severe hepatic steatosis. 2. Bladder wall thickening, nonspecific but can be seen with infection and neoplastic process.. 3. Small stable retroperitoneal lymph nodes. 1. Sergio Morrow MD Chest X-Ray 05/20/17 1305 Signed Impressions: Service Date/Time: Saturday, May 20, 2017 13:19 - CONCLUSION: No acute cardiopulmonary disease. Malcolm Good MD Head CT 05/20/17 0000 Signed Impressions: Service Date/Time: Saturday, May 20, 2017 14:36 - CONCLUSION: Unremarkable study. Malcolm Good MD A/P Problem List: (1) UTI (urinary tract infection) Status: Acute Plan: chronic neurogenic bladder - CT abd/pelvis (05/20/17) --> bladder wall thickening - blood cx ngtd. urine cx citrobacter. - Vancomycin (05/20/17- present). - Aztreonam in pcn allergic pt for now. - bethanechol nicholas out and he is urinated. d/c vanco. has been on aztreonam limited abx choices po due to long drug allergy list s to tetracycline and so will try doxy.. (2) Neurogenic bladder Status: Chronic Plan: see above (3) Altered mental status Status: Acute Plan: - likely d/t UTI - SIRS - CT brain (05/20/17) --> NO acute findings - see above (4) Quadriplegia Status: Chronic Plan: - supportive care (5) Chronic pain Status: Chronic Plan: - cymbalta, scheduled oxycontin, prn zanaflex, gabapentin - prn percocet (6) Hypothyroid Status: Chronic Plan: - levothyroxine Problem Qualifiers (1) Altered mental status: Qualified Code: R41.82 - Altered mental status, unspecified altered mental status type (2) Chronic pain: Qualified Code: G89.4 - Chronic pain syndrome (3) Hypothyroid: Qualified Code: E03.9 - Hypothyroidism, unspecified type Peterson Rosales MD May 22, 2017 11:45
[2017-05-22] MEDS: ENOXAPARIN SODIUM 30 MG/0.3 ML SYRINGE SQ SCH (17:40)
[2017-05-22] MEDS: SODIUM CHLORIDE 0.9% FLUSH 10 ML FLUSH IV FLUSH SCH (22:00)
[2017-05-23] VITALS: BP 113/77; PULSE 127; RESP 20; TEMP 98.3; O2SAT 95
[2017-05-23 01:20] VITALS: PULSE 137
[2017-05-23] MEDS: oxyCODONE/ACETAMINOPHEN 10 MG/325 MG TAB PO PRN ×3 (01:30→13:43)
[2017-05-23] MEDS ORDERED: PHARMACY ORDERED LAB ONE (03:45)
[2017-05-23 04:00] VITALS: BP 142/63; PULSE 98; RESP 20; TEMP 98; O2SAT 97
[2017-05-23] MEDS: AZTREONAM INJ 1,000 MG in SODIUM CHLORIDE 0.9% INJ 100 ML IV SCH (05:48)
[2017-05-23] MEDS: LEVOTHYROXINE SODIUM 50 MCG TAB PO SCH (05:49)
[2017-05-23 08:20] VITALS: BP 127/82; PULSE 101; RESP 16; TEMP 98; O2SAT 94
[2017-05-23] MEDS: POLYETHYLENE GLYCOL 17 GM PKG PO SCH (09:00)
[2017-05-23] MEDS ORDERED: DOXYCYCLINE HYCLATE 100 MG CAP PO SCH (09:00)
[2017-05-23] MEDS: GABAPENTIN 300 MG CAP PO SCH ×2 (09:29→13:41)
[2017-05-23] MEDS: DULoxetine HCl DR 60 MG CAP PO SCH (09:30)
[2017-05-23] MEDS: PANTOPRAZOLE SOD 40 MG DELAYED RELEASE TAB PO SCH (09:30)
[2017-05-23] MEDS: TAMSULOSIN HCL 0.4 MG CAP PO SCH (09:30)
[2017-05-23] MEDS: BETHANECHOL CHL 25 MG TAB PO SCH ×2 (09:31→13:41)
[2017-05-23] MEDS: PRAVASTATIN SOD 10 MG TAB PO SCH (09:31)
[2017-05-23] MEDS: DOCUSATE SODIUM 100 MG CAP PO SCH (09:31)
[2017-05-23] MEDS: CETIRIZINE HCL 10 MG TAB PO SCH (09:32)
[2017-05-23] MEDS: SODIUM CHLORIDE 0.9% FLUSH 10 ML FLUSH IV FLUSH SCH (09:39)
[2017-05-23] MEDS ORDERED: NITR1CAP36 PO (10:04)
--- NOTE | 2017-05-23 10:04 | HHI.DCPOC ---
Discharge Care Plan Diagnosis: (1) UTI (urinary tract infection) (2) Neurogenic bladder Goals to Promote Your Health * To prevent worsening of your condition and complications * To maintain your health at the optimal level Directions to Meet Your Goals Take your medications as prescribed Follow your dietary instruction Follow activity as directed Keep your appointments as scheduled Take your immunizations and boosters as scheduled If your symptoms worsen call your PCP, if no PCP go to Urgent Care Center or Emergency Room Smoking is Dangerous to Your Health. Avoid second hand smoke Call the 24-hour hour crisis hotline for domestic abuse at Peterson Rosales MD May 23, 2017 10:04
--- NOTE | 2017-05-23 10:09 | HHI.PR ---
Subjective Remarks eager for d/c . was very uncomfortable last night and says the hospital is not set up for his condition. Objective Vitals heart reg lung cta abd s/nt ext no edema Vital Signs Date Time Temp Pulse Resp B/P Pulse Ox O2 Delivery O2 Flow Rate FiO2 05/23/17 08:20 98.0 101 16 127/82 94 05/23/17 04:00 98.0 98 20 142/63 97 05/23/17 01:20 137 05/23/17 00:00 98.3 127 20 113/77 95 05/22/17 20:00 98.0 118 20 168/98 93 05/22/17 16:00 97.1 83 17 95/55 95 05/22/17 12:00 97.5 94 17 160/85 97 05/22/17 05/22/17 05/23/17 15:00 23:00 07:00 Output Total 2000 ml Balance -2000 ml Output Urine Total 2000 ml # Bowel Movements 1 Result Diagram: 05/21/17 0750 05/21/17 0750 Imaging Last Impressions Abdomen/Pelvis CT 05/20/17 1430 Signed Impressions: Service Date/Time: Saturday, May 20, 2017 14:41 - CONCLUSION: 1. Severe hepatic steatosis. 2. Bladder wall thickening, nonspecific but can be seen with infection and neoplastic process.. 3. Small stable retroperitoneal lymph nodes. 1. Sergio Morrow MD Chest X-Ray 05/20/17 1305 Signed Impressions: Service Date/Time: Saturday, May 20, 2017 13:19 - CONCLUSION: No acute cardiopulmonary disease. Malcolm Good MD Head CT 05/20/17 0000 Signed Impressions: Service Date/Time: Saturday, May 20, 2017 14:36 - CONCLUSION: Unremarkable study. Malcolm Good MD A/P Problem List: (1) UTI (urinary tract infection) Status: Acute Plan: chronic neurogenic bladder - CT abd/pelvis (05/20/17) --> bladder wall thickening - blood cx ngtd. urine cx citrobacter. - Vancomycin stopped - Aztreonam in pcn allergic pt for now. - bethanechol pt and would like to go home. I called his pcp who can see him tomorrow. we reviewed the only pill options that will rx the infection. pcp concerned that [facility] having trouble with getting the doxy or it was expensive..chose nitrofurantoin for now and will change if problems. (2) Neurogenic bladder Status: Chronic Plan: see above (3) Altered mental status Status: Acute Plan: - likely d/t UTI - SIRS - CT brain (05/20/17) --> NO acute findings - see above (4) Quadriplegia Status: Chronic Plan: - supportive care (5) Chronic pain Status: Chronic Plan: - cymbalta, scheduled oxycontin, prn zanaflex, gabapentin - prn percocet (6) Hypothyroid Status: Chronic Plan: - levothyroxine Problem Qualifiers (1) Altered mental status: Qualified Code: R41.82 - Altered mental status, unspecified altered mental status type (2) Chronic pain: Qualified Code: G89.4 - Chronic pain syndrome (3) Hypothyroid: Qualified Code: E03.9 - Hypothyroidism, unspecified type Peterson Rosales MD May 23, 2017 10:09
[2017-05-23 12:32] VITALS: BP 91/55; PULSE 89; RESP 16; TEMP 97.8; O2SAT 94
== END 2017-05-23 14:54 | disposition home or self-care (01) | DRG 689 ==
LOC: NEPC 12:39 → NEDA 16:04 → N05A 19:16
PROVIDERS: ADMIT Hospitalist; ATTEND Hospitalist
PROC: 0T9B70Z Drainage of Bladder with Drainage Device, Via Natural or Artificial Opening (ICD-10-PCS; principal; 2017-05-20)
DX: N30.91 Cystitis, unspecified with hematuria (principal); G82.50 Quadriplegia, unspecified; E87.2 Acidosis; N31.9 Neuromuscular dysfunction of bladder, unspecified; K76.0 Fatty (change of) liver, not elsewhere classified; R16.0 Hepatomegaly, not elsewhere classified; K21.9 Gastro-esophageal reflux disease without esophagitis; F17.210 Nicotine dependence, cigarettes, uncomplicated; Z87.442 Personal history of urinary calculi; Z88.1 Allergy status to other antibiotic agents; Z88.0 Allergy status to penicillin; Z88.2 Allergy status to sulfonamides; Z99.3 Dependence on wheelchair; G47.33 Obstructive sleep apnea (adult) (pediatric); E03.9 Hypothyroidism, unspecified; G89.4 Chronic pain syndrome; R73.03 Prediabetes; R19.7 Diarrhea, unspecified; Z85.828 Personal history of other malignant neoplasm of skin; J45.909 Unspecified asthma, uncomplicated
CPT/HCPCS: 70450; 71010; 74177; 80048; 80053; 81001; 83605; 83690; 84484; 85025; 87040; 87077; 87086; 87186; 93005; 96361; 96365; J1200; J1650; J3370; J7030; J7040; J7050